=== PATIENT | female | born 1965 | race Caucasian/White ===

== ENCOUNTER 2016-10-28 01:46 | Emergency (ER) | payer OTHER ==
[~2016-10-28] VITALS: Ht 165.1 cm; Wt 147.4 kg
[~2016-10-28 01:46] MED LIST: BIAXIN500 MG PO; CIPROFLOXACIN500 MG PO; CLARITIN10 MG PO; DUONEB 3 MG/3 ML3 M1 NEB; FLEXERIL10 MG PO; HYDROCODONE BIT1 T11 PO; KEFLEX500 MG PO; LASIX40 MG PO; LEVOFLOXACIN750 M2 PO; LISINOPRIL10 M1 PO; MEDROL DOSEPAK4 MG PO; MOTRIN800 MG PO; PREDNISONE10 MG PO; PROVENTIL0.09 MG/AC IH; ROBITUSSIN AC 110 ML PO; SINGULAIR10 MG PO; SYNTHROID0.137 MG PO; VICO10300 PO; VICODIN 500 MG-1 TAB PO; VITAMIN D50000 I3 PO
[2016-10-28 02:09] VITALS: BP 173/94
[2016-10-28 02:23] LABS: BILIRUBIN NEGATIVE (NEGATIVE); BLOOD 3+ (NEGATIVE); CLARITY CLOUDY (CLEAR); COLOR YELLOW (YELLOW); GLUCOSE NEGATIVE (NEGATIVE); KETONE NEGATIVE (NEGATIVE); LEUKO ESTERASE 2+ (NEGATIVE); NITRITE NEGATIVE (NEGATIVE); PH 5.5 (5.0-9.0); PROTEIN NEGATIVE (NEGATIVE); SPECIFIC GRAVITY 1.015 (1.005-1.030); UROBILINOGEN 0.2 E.U./dl (0.2-1.0)
[2016-10-28 02:30] LABS: BACTERIA 1+; RBC TNTC rbc/hpf (0-2); URINE REFLEX COMMENT YES (NO); WBC 51-100 wbc/hpf (0-5)
[2016-10-28] MEDS ORDERED: DIFLUCAN150 MG PO (02:47)
[2016-10-28] MEDS ORDERED: PYRIDIUM200 M1 PO (02:47)
[2016-10-28] MEDS ORDERED: CEFUROXIME AXE250 MG PO (02:47)
== END 2016-10-28 03:26 | disposition home or self-care (01) ==
LOC: ED 01:46
PROVIDERS: Emergency Medicine Emergency Medical Services
DX: N39.0 Urinary tract infection, site not specified (principal); R30.0 Dysuria; Z79.899 Other long term (current) drug therapy

== ENCOUNTER → 2016-12-05 | Outpatient (CLI) | payer OTHER ==
[~2016-12-05] MED LIST changes: +CEFUROXIME AXE250 MG PO; +DIFLUCAN150 MG PO; +PYRIDIUM200 M1 PO
[2016-12-05 11:01] LABS: BASO # 0.1 10*3/uL (0.0-0.1); BASO % 0.7 % (0.0-1.0); EOS # 0.2 10*3/uL (0.0-0.4); EOS % 1.6 % (1.0-4.0); HEMATOCRIT 43.3 % (37.0-47.0); HEMOGLOBIN 13.7 g/dl (12.0-16.0); LYMPH # 1.9 10*3/uL (1.3-4.4); LYMPH % 17.8 % (27.0-41.0); MEAN CELL VOLUME 84.2 fl (81.0-99.0); MEAN CORPUSCULAR HGB 26.7 pg (27.0-31.0); MEAN CORPUSCULAR HGB CONC 31.6 g/dl (33.0-37.0); MEAN PLATELET VOLUME 9.8 fl (9.6-12.3); MONO # 0.7 10*3/uL (0.1-1.0); MONO % 6.2 % (3.0-9.0); NEUT # 7.7 10*3/uL (2.3-7.9); NEUT % 73.3 % (47.0-73.0); PLATELET COUNT AUTOMATED 330 10*3/uL (130-400); RED BLOOD COUNT 5.14 10*6/uL (4.10-5.10); RED CELL DISTRI WIDTH 15.3 % (0-14.5); WHITE BLOOD COUNT 10.5 10*3/uL (4.8-10.8)
[2016-12-05 11:26] LABS: ALBUMIN 3.6 gm/dl (3.1-4.5); BUN 17 mg/dl (7-24); CHLORIDE 100 mmol/L (98-107); CHOLESTEROL 188 mg/dL (<200); CREATININE 0.71 mg/dL (0.55-1.02); HDL CHOLESTEROL 51 mg/dl (40-60); LDL CHOLESTEROL 105 mg/dL (9-159); POTASSIUM 4.6 mmol/L (3.5-5.1); SGOT/AST 21 IU/L (3-35); SGPT/ALT 61 U/L (12-78); SODIUM 138 mmol/L (136-145); TOTAL PROTEIN 8.4 gm/dL (6.4-8.2); TRIGLYCERIDES 160 mg/dl (<150); VLDL CHOLESTEROL 32 mg/dL (6-40)
[2016-12-05 11:33] LABS: ALKALINE PHOSPHATASE 121 U/L (45-117)
== END | disposition home or self-care (01) ==
LOC: LAB 10:32
PROVIDERS: Internal Medicine
DX: M47.897 Other spondylosis, lumbosacral region (principal); M48.07 Spinal stenosis, lumbosacral region; M46.07 Spinal enthesopathy, lumbosacral region; M47.817 Spondylosis without myelopathy or radiculopathy, lumbosacral region; E04.1 Nontoxic single thyroid nodule; R94.6 Abnormal results of thyroid function studies; R94.5 Abnormal results of liver function studies; R73.09 Other abnormal glucose

== ENCOUNTER → 2016-12-19 | Outpatient (CLI) | payer OTHER | END | disposition home or self-care (01) | LOC: MAMMO 12-04 13:30 | DX: Z12.31 Encounter for screening mammogram for malignant neoplasm of breast (principal) ==

== ENCOUNTER 2017-05-04 04:35 | Emergency (ER) | payer SELFPAY ==
[~2017-05-04] VITALS: Ht 167.6 cm; Wt 145.1 kg
[2017-05-04 04:46] VITALS: BP 152/96
[2017-05-04] MEDS ORDERED: TOBREX OPHTH O3.5 GM T (05:49)
== END 2017-05-04 06:36 | disposition home or self-care (01) ==
LOC: ED 04:35
DX: S05.01XA Injury of conjunctiva and corneal abrasion without foreign body, right eye, initial encounter (principal); Z98.890 Other specified postprocedural states; Z87.01 Personal history of pneumonia (recurrent); Z79.899 Other long term (current) drug therapy; X58.XXXA Exposure to other specified factors, initial encounter; Y93.89 Activity, other specified; Y92.89 Other specified places as the place of occurrence of the external cause; Y99.9 Unspecified external cause status

== ENCOUNTER 2018-07-31 13:30 | Inpatient (IN) | payer MEDICAID ==
[~2018-07-31] VITALS: Ht 165 cm; Wt 164.7 kg
--- NOTE | ~2018-07-31 | EKG ---
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 : 1965 Requested By: CHARLOTTE TAN Order Number: [id number] Reading MD: Clive Farmer MD Measurements Intervals [place] Rate: 85 P: 56 TN: 176 QRS: -11 QRSD: 108 T: 55 QT: 380 QTc: 452 Interpretive Statements Sinus rhythm Probable left atrial enlargement Left ventricular hypertrophy Compared to ECG 07/22/2018 07:06:17 Left ventricular hypertrophy now present Incomplete right bundle-branch block no longer present Myocardial infarct finding no longer present ST (T wave) deviation no longer present Electronically Signed On 08-03-2018 7:55:12 PDT by Clive Farmer MD CM:EKGRPT:ELECTROCARDIOGRAM REPORT [id number] CHARLOTTE MARCUS DRAFT REPORT CHARLOTTE TAN MD
--- NOTE | ~2018-07-31 | EKG ---
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: : 1965 Requested By: CHARLOTTE TAN Order Number: [id number] Reading MD: Clive Farmer MD Measurements Intervals [place] Rate: 92 P: 2 LA: 178 QRS: -13 QRSD: 105 T: 59 QT: 357 QTc: 442 Interpretive Statements Sinus rhythm Probable anteroseptal infarct, old Compared to ECG 07/22/2018 07:06:17 Incomplete right bundle-branch block no longer present ST (T wave) deviation no longer present Myocardial infarct finding still present Electronically Signed On 08-03-2018 7:54:51 PDT by Clive Farmer MD CM:EKGRPT:ELECTROCARDIOGRAM REPORT [id number] CHARLOTTE TAN MD EPIPHANY DRAFT REPORT CHARLOTTE TAN MD
--- NOTE | ~2018-07-31 | PR ---
[place], [place] PROGRESS NOTE NAME: ARMANDO BAIN UNIT #: [id number] ROOM: 407 DOCTOR: ANDRESSA BE MD BIRTHDATE: [birth year] DOS: 08/09/2018 PULMONARY PROGRESS NOTE SUBJECTIVE: The patient noted comfortable at this time, resting in the bed without any distress this morning of assessment. She has not been reported any symptoms of fever or chills. The sore throat has been noted improving for the patient with current use of Diflucan, nystatin swish and swallow. OBJECTIVE: VITAL SIGNS: This morning, normal temperature, respiratory rate 18, heart rate 79, blood pressure 118/69. Pulse oxygen saturation recorded as 94% on room air. HEENT: Examination shows head was atraumatic. Eyes nonicterus. NECK: Supple. CARDIOVASCULAR: S1, S2 is audible. LUNGS: The patient was noted without any wheezing or crackles. ABDOMEN: Soft, obese, nontender. Bowel sounds present. EXTREMITIES: No new change. LABORATORY DATA: BMP this morning, BUN 27, creatinine normal. CBC, WBC count was 18.5. Hemoglobin and hematocrit, platelet count normal. IMPRESSION: 1. Acute exacerbation of bronchial asthma with resolving acute hypoxic respiratory failure. Gradual progressive acute pharyngitis, most likely related to the oral growth of Akua albicans. 2. Chronic obesity. 3. Obstructive sleep apnea disorder. PLAN OF MANAGEMENT: The patient could be discharged home. The patient with tapering prednisone to be completed, oral Diflucan, and nystatin swish and swallow. She could resume her CPAP upon improvement in the respiratory status. [place], [place] PROGRESS NOTE NAME: ARMANDO BAIN UNIT #: [id number] ROOM: 407 DOCTOR: ANDRESSA BE MD BIRTHDATE: [birth year] ANDRESSA FARRELL MD CM:PNTRANS [id number] ANDRESSA BELTRAN MD 08/24/18 1022 interface
--- NOTE | ~2018-07-31 | PROC NOTE ---
[place], [place] PROCEDURE NOTE NAME: ARMANDO BAIN UNIT #: [id number] ROOM: 407 DOCTOR: JAMI BELTRAN MD,ANDRESSA BIRTHDATE: [birth year] DOS: 08/03/2018 PROCEDURE: Bronchoscopy. PREOPERATIVE DIAGNOSES: Persistent coughing, wheezing, and left lower lobe pneumonia. POSTOPERATIVE DIAGNOSES: Removal of the mucopurulent secretion from endobronchial tree bilaterally with some redness of the proximal portion of the trachea was also noted. COMPLICATIONS: None. PROCEDURE DESCRIPTION: Informed consent obtained for the patient. The patient was brought to the OR and placed in supine position. Conscious sedation was administered by the Anesthesia Department. After the conscious sedation, airway was introduced into the mouth. Bronchoscope was advanced to the airway into laryngeal area. Epiglottis and vocal cords were seen. Vocal cords moving in symmetrical movements. Bronchoscope was advanced to the vocal cord through the tracheal lumen. The tracheal lumen was noted. The proximal portion of the trachea noted with some redness with mucosal irregularity. Secretions present in the tracheal lumen was suctioned out. Eleanor noted sharp. The right upper, right middle, left upper, lingular lobe bronchi all examined. Endobronchial secretion was removed from endobronchial tree, sent for culture. The patient was noted with transient hypoxia during the procedure that was corrected with withdrawal of the bronchoscope. Bronchial washing sent for appropriate culture. Procedure was well tolerated. The culture will be monitored. Postoperative finding will be discussed with the patient later on. The Solu-Medrol dose will be decreased to q.8 hours. The patient would be advised about reassessment of the upper airway with the repeat bronchoscopy in about a month to assess the resolution of the current abnormality noted in the tracheal lumen. No other changes otherwise will be as needed to be done in the treatment. ANDRESSA FARRELL MD CM:PROCNOTE:PROCEDURE NOTE [id number] ANDRESSA BELTRAN MD
--- NOTE | ~2018-07-31 | PR ---
[place], [place] PROGRESS NOTE NAME: ARMANDO BAIN UNIT #: [id number] ROOM: 407 DOCTOR: JAMI BELTRAN MD,ANDRESSA BIRTHDATE: [birth year] DOS: 08/06/2018 PULMONARY PROGRESS NOTE SUBJECTIVE: The patient was noted comfortable at this time without any acute distress, has not been noted symptoms of fever or chills. Shortness of breath and cough has been gradually improving in the last 24 hours with significant improvement noted. This morning, the patient is sitting on the chair at the time. PHYSICAL EXAMINATION: VITAL SIGNS: Normal temperature, respiratory rate 20, heart rate 84, blood pressure 144/77. The pulse oxygen saturation 3 liters nasal cannula 93% saturation. HEENT: Head was atraumatic. Eyes nonicterus. NECK: Supple. CARDIOVASCULAR: S1, S2 is audible. LUNGS: Noted improvement in the air entry was noted with reduction in the wheezing in the last 24 hours. ABDOMEN: Soft, obese, and nontender. Bowel sounds are present. EXTREMITIES: Chronic obesity. IMPRESSION: The patient with: 1. Resolving acute exacerbation of bronchial asthma, acute bronchitis, gradually progressively. 2. Human metapneumovirus with acute pneumonia involving the left lower lobe. PLAN OF MANAGEMENT: No changes in plan of care. Ambulation was encouraged with use of oxygen supplementation. Other additional treatment changes will be ordered based on progression of the illness. ANDRESSA FARRELL MD CM:PNTRANS [id number] ANDRESSA BELTRAN MD 08/06/18 1806 interface
--- NOTE | ~2018-07-31 | PR ---
[place], [place] PROGRESS NOTE NAME: ARMANDO BAIN UNIT #: [id number] ROOM: 407 DOCTOR: ANDRESSA BE MD BIRTHDATE: [birth year] DOS: 08/05/2018 PULMONARY PROGRESS NOTE SUBJECTIVE: The patient is still noted with coughing and wheezing, but the symptoms have been gradually subsiding, noted very slow resolution. Denies symptoms of chest pain, fever, chills, or hemoptysis. Denies symptoms of abdominal pain. OBJECTIVE: VITAL SIGNS: Normal temperature, respiratory rate 18, heart rate of 63, blood pressure 142/67. Pulse oxygen saturation recorded as 97% saturation on four-liter nasal cannula. HEENT: Examination shows head is atraumatic. Eyes nonicterus. NECK: Chronic obesity. CARDIOVASCULAR: S1 and S2 audible. LUNGS: Fmib-ch-raifiedh expiratory wheezing. No crackles. ABDOMEN: Soft, nontender. Bowel sounds present. EXTREMITIES: No new change. IMPRESSION: 1. The patient with slow but gradual resolution of acute exacerbation of bronchial asthma. 2. Human metapneumovirus with pneumonia involving the right lower lobe. 3. Morbid obesity. 4. Obstructive sleep apnea disorder. PLAN OF TREATMENT: Gradual reduction of the steroids will be started. Solu-Medrol dose will be decreased to 40 mg b.i.d. today. The antibiotics will be discontinued at this time because of lack of the culture supporting their use. Other additional treatment changes will be made with progression of the illness. Usual care, other therapy plan of management, care plan and treatments. [place], [place] PROGRESS NOTE NAME: ARMANDO BAIN UNIT #: [id number] ROOM: 407 DOCTOR: ANDRESSA BE MD BIRTHDATE: [birth year] ANDRESSA FARRELL MD CM:PNTRANS [id number] ANDRESSA BELTRAN MD 08/06/18 0010 interface
--- NOTE | ~2018-07-31 | EKG ---
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 Boss: SS RESP : 1965 Requested By: CHARLOTTE TAN Order Number: [id number] Reading MD: Clive Farmer MD Measurements Intervals [place] Rate: 89 P: 43 MT: 187 QRS: 12 QRSD: 104 T: 48 QT: 373 QTc: 454 Interpretive Statements Sinus rhythm Consider left atrial enlargement Baseline wander in lead(s) V1 Compared to ECG 07/22/2018 07:06:17 Incomplete right bundle-branch block no longer present Myocardial infarct finding no longer present ST (T wave) deviation no longer present Electronically Signed On 08-03-2018 7:55:49 PDT by Clive Farmer MD CM:EKGRPT:ELECTROCARDIOGRAM REPORT [id number] CHARLOTTE TAN MD EPIPHANY DRAFT REPORT CHARLOTTE TAN MD
--- NOTE | ~2018-07-31 | PR ---
[place], [place] PROGRESS NOTE NAME: ARMANDO BAIN UNIT #: [id number] ROOM: 407 DOCTOR: JAMI BELTRAN MDANDRESSA BIRTHDATE: [birth year] DOS: 08/08/2018 PULMONARY PROGRESS NOTE SUBJECTIVE: The patient was complaining of sore throat, which was noted significant in the last 24 hours. Shortness of breath and the wheezing has been gradually improving and subsiding. There were no symptoms of chest pain. Denies symptoms of hemoptysis. Denies symptoms of nausea or vomiting. Denies symptoms of abdominal pain, hematemesis, melena, or hematochezia. Denies symptoms of headache or diplopia. The patient has been using the oxygen supplementation as previously ordered as well. The remaining systems were reviewed and they were noted all negative. OBJECTIVE: VITAL SIGNS: Normal temperature, respiratory rate is 18, heart rate is 83, and blood pressure is 147/79-128/64. Pulse oxygen saturation is recorded as 98% saturation on 2 liters nasal cannula. HEENT: Examination shows head was atraumatic. Eyes nonicterus. NECK: Supple. CARDIOVASCULAR SYSTEM: S1, S2 is audible. LUNGS: The patient was noted without any crackles, rhonchi, or occasional wheezing. ABDOMEN: Soft, obese, nontender. MUSCULOSKELETAL: Without any acute deformity. CENTRAL NERVOUS SYSTEM: Cranial nerves 2-12 intact. LABORATORY DATA: There were no new labs done today. IMPRESSION: The patient has slow but gradual resolution noted with acute exacerbation of bronchial asthma, acute tracheobronchitis, oropharyngeal pain, and possibility of oropharyngeal candidiasis was suspected. PLAN OF MANAGEMENT: Started the patient on oral Nystatin swish and swallow 5 mL q.i.d., Diflucan 100 mg daily. Decrease the Solu-Medrol further to 40 mg of Solu-Medrol daily. Other additional treatment changes will be ordered with the progression of the illness. The patient was planned for discharge home today, but would not be done because of the patient's current acute symptoms. Possible consideration for tomorrow may be considered depending on the reduction of the current acute symptoms. [place], [place] PROGRESS NOTE NAME: ARMANDO BAIN UNIT #: [id number] ROOM: 407 DOCTOR: ANDRESSA BE MD BIRTHDATE: [birth year] ANDRESSA FARRELL MD CM:PNTRANS [id number] ANDRESSA BELTRAN MD 08/09/18 0527 interface
--- NOTE | ~2018-07-31 | EKG ---
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
--- NOTE | ~2018-07-31 | PR ---
[place], [place] PROGRESS NOTE NAME: ARMANDO BAIN UNIT #: [id number] ROOM: 407 DOCTOR: JAMI BELTRAN MD,ANDRESSA BIRTHDATE: [birth year] DOS: 08/07/2018 PULMONARY PROGRESS NOTE SUBJECTIVE: She has been showing gradual, but slow improvement in the respiratory status, progressive reduction in symptoms of shortness of breath, coughing, and wheezing. Denies any chest pain. Fatigue was noted. She did ambulate yesterday in the hallway using oxygen. OBJECTIVE: VITAL SIGNS: This morning at rest, normal temperature, respiratory rate 20/75, blood pressure 148/71, pulse oxygen saturation 2 liters nasal cannula 92% saturation. HEENT: Chronic obesity. NECK: Supple. Head was atraumatic. CARDIOVASCULAR: S1, S2 is audible. LUNGS: The patient with mild expiratory wheezing, no crackles. ABDOMEN: Soft, nontender. Bowel sounds present. EXTREMITIES: No acute change. Chronic obesity findings. IMPRESSION: Gradual, but progressive resolution of acute exacerbation of bronchial asthma and acute bronchitis as well as human metapneumovirus. PLAN OF MANAGEMENT: No changes in the plan at this time would be recommended. Continuation of current therapy, plan of management as ongoing. ANDRESSA FARRELL MD CM:PNTRANS [phone] ANDRESSA BELTRAN MD 08/08/18 0456 interface
--- NOTE | ~2018-07-31 | PR ---
[place], [place] PROGRESS NOTE NAME: ARMANDO BAIN UNIT #: [id number] ROOM: 407 DOCTOR: JAMI BELTRAN MD,ANDRESSA BIRTHDATE: [birth year] DOS: 08/04/2018 PULMONARY PROGRESS NOTE SUBJECTIVE: The patient has bronchoscopy done yesterday, still noted excessive severe coughing and wheezing at times. Denies symptoms of fever or chills. Shortness of breath was still reported. The cough has been noted partially decreased. Denies symptoms of hemoptysis. Noted low-grade fever, 100 degrees Fahrenheit as well. Continue antibiotics as well. Denies symptoms of headache or diplopia. Denies symptoms of nausea, vomiting, diarrhea, abdominal pain, hematemesis, melena, or hematochezia. Remaining systems were reviewed and they were noted all negative. OBJECTIVE: VITAL SIGNS: Normal temperature, respiratory rate is 20, heart rate is 77, and blood pressure is 134/74. Pulse oxygen saturation on 4 liters nasal cannula is 95% saturation. HEENT: On examination, head was atraumatic. Eyes nonicterus. NECK: Supple. CARDIOVASCULAR SYSTEM: S1, S2 is audible. LUNGS: Noted with expiratory wheezing without any crackles. ABDOMEN: Soft, nontender. Bowel sounds present. EXTREMITIES: Without any edema. MUSCULOSKELETAL: Chronic deformities. LABORATORY DATA: Respiratory virus panel, PCR was available noted positive for human metapneumovirus isolation. Culture of the bronchial washing preliminary noted normal reina. The Gram stain was noted with a few white blood cells, few epithelial cells, rare gram-positive cocci in pairs. Urine for Legionella antigen and Strep antigen both noted as negative. Spontaneous sputum culture noted normal reina. IMPRESSION: 1. The patient with acute ongoing severe exacerbation of bronchial asthma with human metapneumovirus with pneumonia. 2. Chronic obesity. 3. History of allergic rhinitis. PLAN OF MANAGEMENT: Discontinue antibiotic after the results of the culture was available completely. No antibiotic will be used. The dose of steroids will be gradually decreased based on improvement in the symptoms. At this time, the patient getting Solu-Medrol 40 mg b.i.d. Await the final culture results tomorrow prior to discontinue Levaquin and the Zosyn. Possible consideration of the Zithromax may be considered atypical coverage if necessary. However, at this time, the patient will be monitored, most likely without antibiotics. Other therapy, plan of management, care plan, and treatment with additional treatment changes will be ordered based on the progression of the illness. [place], [place] PROGRESS NOTE NAME: ARMANDO BAIN UNIT #: [id number] ROOM: [facility] DOCTOR: ANDRESSA BE MD BIRTHDATE: [birth year] ANDRESSA FARRELL MD CM:PNTRANS [phone] ANDRESSA BELTRAN MD 08/05/18 0259 interface
--- NOTE | ~2018-07-31 | PR ---
[place], [place] PROGRESS NOTE NAME: ARMANDO BAIN UNIT #: [id number] ROOM: 407 DOCTOR: JAMI BELTRAN MD,ANDRESSA BIRTHDATE: [birth year] DOS: 08/02/2018 PULMONARY PROGRESS NOTE SUBJECTIVE: She has been essentially noted the same complaining of fever and feeling hot. Coughing, patient has been noted small amounts of expectoration contained small amount of hemoptysis. Symptoms of headache or diplopia. Nausea, vomiting, diarrhea, abdominal pain, hematemesis, melena, or hematochezia. Denies any edema or pain of the lower extremity. Remaining systems were reviewed. They were noted all negative. PHYSICAL EXAMINATION: VITAL SIGNS: Normal temperature, respiratory rate 20, heart rate 83, blood pressure 151/77. Pulse ox saturation on 2 liters nasal cannula 94% saturation recorded. HEENT: Head was atraumatic. Eyes nonicterus. NECK: Supple. CARDIOVASCULAR: S1, S2 is audible. LUNGS: The patient noted decreased breath sounds. Crackles in the left lower lung. ABDOMEN: Soft, nontender. Bowel sounds present. EXTREMITIES: No acute change. MUSCULOSKELETAL: Without acute deformities. CENTRAL NERVOUS SYSTEM: Intact. SKIN: No visible skin lesions or rashes. LABORATORY DATA: The CT scan of the head that was done was essentially noted without any acute abnormalities. Sputum culture the patient noted normal reina from yesterday. Cultures, the Gram stain many white blood cells, moderate epithelial cells, many gram-positive cocci in pairs and clusters, many gram-positive bacilli and moderate budding yeast. The BMP this morning, normal BUN and creatinine. Glucose 150. CBC: WBC count 11,000, hemoglobin and hematocrit normal, platelet count normal. IMPRESSION: 1. The patient with acute pneumonia involving left lower lobe. 2. Acute exacerbation of bronchial asthma. 3. The patient with chronic obesity, history of obstructive sleep apnea disorder, previously diagnosed. PLAN OF MANAGEMENT: The patient has been assessed for bronchoscopy done tomorrow morning. In the meantime, continue current dose of corticosteroids, bronchodilators, and oxygen supplementation. Usual care. Reduction of Solu-Medrol, most likely after bronchoscopy would be considered. Other therapy, plan of management, additional treatment changes will be ordered based on progression of the illness. Chest x-ray will be done in the next couple of days to reassess the pneumonia for patient as well. N.p.o. past midnight for bronchoscopy. She was planned from midnight tonight for the bronchoscopy tomorrow morning. [place], [place] PROGRESS NOTE NAME: ARMANDO BAIN UNIT #: [id number] ROOM: [facility] DOCTOR: ANDRESSA BE MD BIRTHDATE: [birth year] ANDRESSA FARRELL MD CM:PNTRANS [phone] ANDRESSA BELTRAN MD 08/24/18 1020 interface
--- NOTE | ~2018-07-31 | PR ---
[place], [place] PROGRESS NOTE NAME: [facility]AIN [id number] UNIT #: [id number] ROOM: 407 DOCTOR: JAMI BELTRAN MD,ANDRESSA BIRTHDATE: [birth year] DOS: 08/03/2018 PULMONARY PROGRESS NOTE SUBJECTIVE: The patient was noted with similar symptoms of coughing, chest congestion and wheezing intermittently, remains in the Intensive Care Unit. Continued oxygen supplementation, bronchodilators and has not been noted any symptoms of fever or chills, hemoptysis. Denies any symptoms of hoarseness or otalgia. Denies any symptoms of headache or diplopia. Denies any symptoms of nausea, vomiting, diarrhea, abdominal pain, hematemesis, melena or hematochezia. Remaining systems were reviewed. They were noted all negative. The patient remains n.p.o. past midnight for bronchoscopy, which was planned to be done today. OBJECTIVE: VITAL SIGNS: Temperature noted 100.9 degrees Fahrenheit rectally to normal temperature orally. The respiratory rate 17-22, heart rate 91-83, blood pressure 119/62-130/63. Pulse oxygen saturation on 4 liters nasal cannula 95% saturation. HEENT: Chronic obesity. Head was atraumatic. Eyes: Nonicterus. NECK: Supple. CARDIOVASCULAR: S1, S2 audible. LUNGS: The patient with decreased breath sounds without any crackles. Expiratory wheezing. ABDOMEN: Soft, nontender. Bowel sounds present. EXTREMITIES: The patient without any acute edema. MUSCULOSKELETAL: Without any acute deformities. CENTRAL NERVOUS SYSTEM: The patient's cranial nerves 2-12 intact. LABORATORY DATA: CBC today: WBC count normal, hemoglobin and hematocrit normal and latelet count were normal. BMP this morning for the patient, glucose 168, BUN normal and creatinine was normal. IMPRESSION: 1. The patient who has been currently noted with acute pneumonia in the left lower lobe, ongoing acute exacerbation of bronchial asthma, chronic symptom for several months for this patient as well appear for bronchoscopy. 2. Chronic obesity. 3. Obstructive sleep apnea disorder. PLAN OF MANAGEMENT: Continue use of bronchodilators, oxygen supplementation, titrate supplementation of oxygen 92% or greater. Further changes in the medical management will be done after the bronchoscopy. Continue current antibiotics. Monitor respiratory status of the patient closely, monitor the labs, which was sent for assessment of acute pneumonia. [place], [place] PROGRESS NOTE NAME: ARMANDO BAIN UNIT #: [id number] ROOM: 407 DOCTOR: ANDRESSA BE MD BIRTHDATE: [birth year] ANDRESSA FARRELL MD CM:PNTRANS [id number] [id number] ANDRESSA BELTRAN MD 08/03/18 2356 interface
--- NOTE | ~2018-07-31 | CON ---
[place], [place] REPORT OF CONSULTATION NAME: ARMANDO BAIN UNIT #: [id number] ROOM: 407 DOCTOR: ANDRESSA BE MD BIRTHDATE: [birth year] DOS: 08/01/2018 PULMONARY CONSULTATION, EVALUATION, AND MANAGEMENT REASON FOR CONSULTATION: Assess the patient with acute pneumonia and abnormal respiratory complaints. HISTORY OF PRESENT ILLNESS: A 53-year-old white female patient who has a reported history of bronchial asthma longstanding for several years. 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 She has been noted sick for several months with progressive worsening noted in the last 2 months. She has developed symptoms of coughing episode, nonresolving at times. She has been also complaining symptoms of wheezing, shortness of breath. The patient was also noted with significant nocturnal awakening because of coughing, inability to sleep. The patient stated that she has been treated in this hospital few days ago and treated for influenza-like infection and then discharged home. She was discharged from this hospital and treated for 5 days, 07/25/2018. She returned back to the office for further care. During assessment, the patient had a chest x-ray done and subsequently CT scan of chest done, which were reported with evidence of acute pneumonia. REVIEW OF SYSTEMS: CONSTITUTIONAL: Fatigue and tiredness noted without any symptoms of fever or chills. EYES: Denies any burning, redness, or tenderness. EARS, NOSE, THROAT SYMPTOMS: Denies sore throat, hoarseness, otalgia, postnasal drainage, or epistaxis. CARDIOVASCULAR: No angina pain, edema, or pain of the lower extremities. GASTROINTESTINAL: Denies dysphagia, nausea, vomiting, diarrhea, abdominal pain, hematemesis, melena, or hematochezia. SKIN: Denies any abnormal lesions or rashes. MUSCULOSKELETAL: No acute joint pain, redness, or tenderness. CENTRAL NERVOUS SYSTEM: Denies dizziness, headache, diplopia, or syncopal episodes. Remaining systems were reviewed. They were noted all negative. PAST MEDICAL HISTORY: Reported as: 1. Longstanding bronchial asthma. 2. Morbid obesity. 3. Obstructive sleep apnea disorder, treated with the CPAP. 4. Intervertebral disk disease. 5. Allergic rhinitis. 6. Gastroesophageal reflux. PAST SURGICAL HISTORY: The patient reported surgery of: 1. Ankles. 2. C-sections. [place], [place] REPORT OF CONSULTATION NAME: ARMANDO BAIN UNIT #: [id number] ROOM: 407 DOCTOR: JAMI BELTRAN MD,ANDRESSA BIRTHDATE: [birth year] SOCIAL HISTORY: The patient is and lives at home. She has one child. Denies alcohol use or illicit drugs. She has smoked for about 5 years, from younger age from 14 years old until 19 years old, pack of cigarettes per day. FAMILY HISTORY: Father at the age of 65, committed suicide. Mother is living, 81-year-old with history of hypertension. HOME MEDICATIONS: Listed as use of Zyrtec, albuterol sulfate nebulizer, Ventolin HFA inhaler, Adderall, vitamin D, Vicodin, DuoNeb, levothyroxine, Singulair, recent prescription of Tamiflu and prednisone. CURRENT MEDICATIONS: Administered at this admission, Singulair, Solu-Medrol 60 mg q.8 hours, Lovenox 40 mg subcutaneous daily, Synthroid 175 mcg daily, Mucinex 1200 mg p.o. b.i.d., DuoNeb q.4h., IV vancomycin, Levaquin, and Zosyn. DRUG ALLERGIES: The patient noted no known drug allergies. PHYSICAL EXAMINATION: GENERAL: A 53-year-old female patient who has been currently noted to be awake and alert without any acute distress. VITAL SIGNS: This morning of assessment. Height of 5 feet 5 inches, weight of 363 pounds, BMI 60.6. Vital signs, normal temperature since admission, respiratory rate 18-20, heart rate 87-101, blood pressure 133/62-133/69. The pulse oxygen saturation recorded as 95% saturation on 4 liters nasal cannula. Room air on admission, 92 at rest. HEENT: Chronic obesity. Head was atraumatic. Eyes nonicterus. NECK: Supple and obese. CARDIOVASCULAR: S1, S2 is audible. LUNGS: Left lung was noted with decreased breath sounds with expiratory wheezing. There were no crackles heard. ABDOMEN: Soft, nontender, bowel sounds present. EXTREMITIES: The patient was noted without any acute edema. Chronic obesity findings. MUSCULOSKELETAL: Noted without any acute deformities. CENTRAL NERVOUS SYSTEM: Cranial nerves 2-12 intact. MUSCULOSKELETAL: Without any acute deformities. LABORATORY DATA: The D-dimer, which was done on admission is 0.80. CMP in the Emergency Room, normal BUN and creatinine. Albumin 2.8. The remaining LFTs and electrolytes normal. CBC on admission, noted with a normal WBC count, hemoglobin, and hematocrit. Blood culture past admission, no bacterial growth was seen. Influenza A and B, nasal washing antigen repeated in the margins were noted as negative. CMP that was completed this morning as glucose 202, BUN and creatinine was normal. Albumin 2.7. CBC of the patient this morning repeated still noted as normal. Chest x-ray 1 view, which were taken in the Emergency Room was reviewed, shows no visible acute pulmonary infiltration with one-view chest x-ray. CT scan of the chest, which was completed yesterday without contrast was reviewed. The patient shows patchy nodular infiltration present in the left lower lobe. Another infiltration noted in the right lower lobe medial subsegment as well. The infiltration noted, larger on the left than the right [place], [place] REPORT OF CONSULTATION NAME: ARMANDO BAIN UNIT #: [id number] ROOM: 407 DOCTOR: JAMI BELTRAN MD,[facility] BIRTHDATE: [birth year] side. The mediastinal structure review was noted suboptimal because of lack of IV contrast. IMPRESSION: The patient will be currently admitted to the hospital with ongoing symptoms, with acute exacerbation of bronchial asthma and currently considered with acute pneumonia. Surprisingly, the WBC count was noted as normal. The patient was also noted afebrile. Possibility of atelectasis could be also considered with infectious etiology of pulmonary infiltration remain in consideration. PLAN OF THERAPY: The patient is already getting Solu-Medrol that will be continued. Bronchoscopy will be done on Friday morning. She will be continued on Levaquin at this time and vancomycin, discontinued the IV Zosyn. Vancomycin would cover any post-viral pneumonia, coverage of Staph aureus or MRSA. Bronchodilator will be continued. Collect the sputum for Gram stain and culture. Order urine for Legionella antigen and strep antigen and repeat PCR for viral assessment from the nasal washings well. Other treatment therapy and plan of management change will be made based on the progression of the illness. Usual care. All other supportive plan of management, treatment therapy, and plan of care accordingly. Thanks for allowing me to participate in the care of this patient. ANDRESSA FARRELL MD CM:CONSTR:REPORT OF CONSULTATION [id number] 08/24/18 1018 interface
[~2018-07-31 13:30] MED LIST changes: +AMPHETAMINE/DEX30 MG PO; +HYDROCODONE-AC1 EACH PO; +Ipratropium Brom3 ML NEB; +PREDNISONE50 MG PO; +PROAIR HFA8.5 GM INH; +SYNTHROID,LEV175 MCG PO; -SYNTHROID0.137 MG PO; +TAMIFLU 75MG CA75 MG PO; +TOBREX OPHTH O3.5 GM T; +ZYRTEC10 MG PO
[2018-07-31 13:33] VITALS: BP 150/82
[2018-07-31 14:00] VITALS: BP 154/88
[2018-07-31 14:14] LABS: BASO % 0.3 % (0.0-1.0); EOS % 0.5 % (1.0-4.0); HEMATOCRIT 41.6 % (37.0-47.0); HEMOGLOBIN 13.3 g/dl (12.0-16.0); LYMPH # 0.9 10*3/uL (1.3-4.4); MEAN CELL VOLUME 85.4 fl (81.0-99.0); MEAN CORPUSCULAR HGB 27.3 pg (27.0-31.0); MEAN PLATELET VOLUME 10.3 fl (9.6-12.3); MONO # 0.6 10*3/uL (0.1-1.0); MONO % 7.9 % (3.0-9.0); NEUT % 77.1 % (47.0-73.0); PLATELET COUNT AUTOMATED 295 10*3/uL (130-400); RED BLOOD COUNT 4.87 10*6/uL (4.10-5.10); RED CELL DISTRI WIDTH 15.6 % (0-14.5); WHITE BLOOD COUNT 7.8 10*3/uL (4.8-10.8)
[2018-07-31 14:34] LABS: ALBUMIN 2.8 gm/dl (3.1-4.5); ALKALINE PHOSPHATASE 102 U/L (45-117); BUN 11 mg/dl (7-24); CHLORIDE 105 mmol/L (98-107); CREATININE 0.84 mg/dL (0.55-1.02); SGOT/AST 17 IU/L (3-35); SGPT/ALT 40 U/L (12-78); SODIUM 139 mmol/L (136-145); TOTAL PROTEIN 6.9 gm/dL (6.4-8.2)
[2018-07-31 14:35] LABS: TROPONIN I < 0.015 ng/ml (<0.045)
[2018-07-31 14:45] LABS: ACT PARTIAL THROMBO TIME 22.3 SECONDS (20.8-31.5)
[2018-07-31 15:30] VITALS: BP 161/75
[2018-07-31 16:13] LABS: BILIRUBIN NEGATIVE (NEGATIVE); BLOOD NEGATIVE (NEGATIVE); CLARITY CLEAR (CLEAR); COLOR YELLOW (YELLOW); GLUCOSE NEGATIVE (NEGATIVE); KETONE NEGATIVE (NEGATIVE); LEUKO ESTERASE NEGATIVE (NEGATIVE); NITRITE NEGATIVE (NEGATIVE); SPECIFIC GRAVITY 1.015 (1.005-1.030); UROBILINOGEN 0.2 E.U./dl (0.2-1.0)
[2018-07-31 16:19] LABS: BACTERIA TRACE; EPITHELIAL CELLS 0-2; WBC 0-2 wbc/hpf (0-5)
[2018-07-31 16:40] VITALS: BP 148/82
--- NOTE | 2018-07-31 18:00 | NUR ---
A 53, admitted to , under the services of ZAID Leon DO with a diagnosis of BILATERAL PNEUMONIA. Chief complaint is SOB, COUGH, FATIGUE. Patient arrived via bed from ER. Monitor applied. Initial assessment completed. Vital signs taken and recorded. ZAID LEON DO notified of admission to the unit. Orders received. See assessment for past medical history, medications and allergies. Patient and/or family oriented to unit. [facility] visitation policy reviewed. Clothing/patient valuable form completed. RAFY HARDING
[2018-07-31 18:10] VITALS: BP 136/86
[2018-07-31 20:00] VITALS: BP 126/66
--- NOTE | 2018-07-31 20:30 | NUR ---
PLEASANT/COOPERATIVE FOR SHIFT ASSESSEMENT. FAMILY MEMBER AT BEDSIDE. BREATHING TREATMENT ON AT THIS TIME. IVF MAINTAINED, IV ABX INFUSING. CALL LIGHT IN REACH
--- NOTE | 2018-07-31 22:36 | NUR ---
NOTIFIED DR AN OF PATIENT REQUESTING SOMETHING FOR A COUGH. STATED HE WOULD PUT SOMETHING IN
[2018-08-01] VITALS: BP 133/62
[2018-08-01 05:46] LABS: ALBUMIN 2.7 gm/dl (3.1-4.5); ALKALINE PHOSPHATASE 89 U/L (45-117); BUN 16 mg/dl (7-24); CHLORIDE 105 mmol/L (98-107); CREATININE 0.87 mg/dL (0.55-1.02); PHOSPHOROUS 2.5 mg/dL (2.5-4.9); POTASSIUM 4.1 mmol/L (3.5-5.1); SGOT/AST 14 IU/L (3-35); SGPT/ALT 39 U/L (12-78); SODIUM 139 mmol/L (136-145); TOTAL PROTEIN 6.5 gm/dL (6.4-8.2)
[2018-08-01 05:54] LABS: HEMATOCRIT 37.7 % (37.0-47.0); HEMOGLOBIN 11.6 g/dl (12.0-16.0); MEAN CELL VOLUME 86.7 fl (81.0-99.0); MEAN CORPUSCULAR HGB 26.7 pg (27.0-31.0); MEAN CORPUSCULAR HGB CONC 30.8 g/dl (33.0-37.0); MEAN PLATELET VOLUME 9.4 fl (9.6-12.3); PLATELET COUNT AUTOMATED 239 10*3/uL (130-400); RED BLOOD COUNT 4.35 10*6/uL (4.10-5.10); RED CELL DISTRI WIDTH 15.4 % (0-14.5); WHITE BLOOD COUNT 7.1 10*3/uL (4.8-10.8)
[2018-08-01 06:33] LABS: PLATELET SUFFICIENCY NORMAL (NORMAL); TOTAL CELLS COUNTED 100 #CELLS
[2018-08-01 08:00] VITALS: BP 121/55
--- NOTE | 2018-08-01 09:00 | NUR ---
TYLENOL 975MG GIVEN PRESCRIBED FOR A HEADACHE RATING A 4/10.
--- NOTE | 2018-08-01 10:00 | NUR ---
TYLENOL EFFECTIVE PER PATIENT.
[2018-08-01 12:00] VITALS: BP 133/69
[2018-08-01 16:00] VITALS: BP 132/69
[2018-08-01 20:00] VITALS: BP 149/72
--- NOTE | 2018-08-01 20:03 | NUR ---
DR JUDD AWARE OF PATIENT REQUESTING SOMETHING FOR A COUGH.
--- NOTE | 2018-08-01 21:29 | NUR ---
PATIENT REQUESTED TEMPERATURE TO BE TAKEN. STATES SHE FEELS FEVERED. ORAL TEMP 98.2
[2018-08-02] VITALS: BP 147/77
--- NOTE | 2018-08-02 01:10 | NUR ---
24 HR chart check completed.
--- NOTE | 2018-08-02 03:12 | NUR ---
MEDICATED WITH PRN ZOFRAN FOR C/O NAUSEA
--- NOTE | 2018-08-02 03:51 | NUR ---
PATIENT AMBULATING IN HALLWAY ON ROOM AIR. MEDICATION SEEMS EFFECTIVE
--- NOTE | 2018-08-02 04:17 | NUR ---
DR JUDD AWARE OF PATIENT REQUESTING TO SEE HIM.
--- NOTE | 2018-08-02 05:15 | NUR ---
DR JUDD TO FLOOR TO SEE PATIENT.
[2018-08-02 06:04] LABS: BASO % 0.2 % (0.0-1.0); HEMATOCRIT 40.8 % (37.0-47.0); HEMOGLOBIN 12.4 g/dl (12.0-16.0); LYMPH # 0.5 10*3/uL (1.3-4.4); LYMPH % 4.6 % (27.0-41.0); MEAN CELL VOLUME 86.6 fl (81.0-99.0); MEAN CORPUSCULAR HGB 26.3 pg (27.0-31.0); MEAN CORPUSCULAR HGB CONC 30.4 g/dl (33.0-37.0); MEAN PLATELET VOLUME 9.4 fl (9.6-12.3); MONO # 0.5 10*3/uL (0.1-1.0); MONO % 4.6 % (3.0-9.0); NEUT # 9.7 10*3/uL (2.3-7.9); NEUT % 87.9 % (47.0-73.0); PLATELET COUNT AUTOMATED 292 10*3/uL (130-400); RED BLOOD COUNT 4.71 10*6/uL (4.10-5.10); RED CELL DISTRI WIDTH 15.5 % (0-14.5)
[2018-08-02 06:12] LABS: BUN 13 mg/dl (7-24); CHLORIDE 103 mmol/L (98-107); CREATININE 0.79 mg/dL (0.55-1.02); POTASSIUM 4.2 mmol/L (3.5-5.1); SODIUM 138 mmol/L (136-145)
--- NOTE | 2018-08-02 07:13 | NUR ---
PT. REFUSED AEROSOL TREATMENT AT THIS TIME. C/O NAUSEA
--- NOTE | 2018-08-02 07:35 | NUR ---
ATTEMPT TO CALL DOCTOR TO INFORM ZOFRAN INEFFECTIVE AND PATIENT HAS NAUSEA.
--- NOTE | 2018-08-02 07:47 | NUR ---
PRESENT ON FLOOR. INFORMED THAT PATIENT IS HAVING A LOT OF NAUSEA WITH ZOFRAN NOT DUE AND WAS INEFFECTIVE PRIOR. STATES ORDER FOR ZOFRAN WILL BE ORDERED
[2018-08-02 08:00] VITALS: BP 138/68
--- NOTE | 2018-08-02 08:00 | NUR ---
INFORMED THAT PATIENT IS ALSO HAVING SPLITTING HEADACHE AND NO PAIN MEDICATION ORDERED. STATES HE WILL PLACE ORDER
--- NOTE | 2018-08-02 08:05 | NUR ---
PATIENT IS MISERABLE, IS PRESENT ND ON FLOOR TO SEE PATIENT.
--- NOTE | 2018-08-02 08:07 | NUR ---
PATIENT MEDICATED WITH ZOFRAN WILL MONITOR EFFECTIVENESS.
--- NOTE | 2018-08-02 08:10 | NUR ---
PATIENT STATES SHE DOES NOT WANT PAIN MEDICATION RIGHT NOW SATTED THAT SHE BELIEVE SHE WILL THROW UP IF SHE TAKES IT. PATIENT WANTS TO WAIT UNTIL ZOFRAN IS EFFECTIVE TO TRY. MADE AWARE STATES THAT CT OF HEAD WILL BE ORDERED.
--- NOTE | 2018-08-02 08:15 | NUR ---
PATIENT STATES "HELP ME IM SO SICK". ADDRESSED PATIENT NEEDS, REFILLED ICE AND COLD COMPRESSION APPLIED TO FOREHEAD. WILL MONITOR
--- NOTE | 2018-08-02 09:07 | NUR ---
PATIENT STATED THAT ZOFRAN WAS WORKING BUT STIL SLIGHLY NAUSEATED. HEADACHE IS BETTER, STILL REFUSING PAIN MEDICATION. PATIENT NOTABLY BETTER.
--- NOTE | 2018-08-02 09:30 | NUR ---
DR.TORM KNIGHTWARE THAT PATIENT IS PRODUCING THICK BROWN TING SPUTUM THAT FAMILY IS CONCERN FOR BLOOD, NO BRIGHT RED. PER PATIENT IT HAS BEEN LIKE THIS. STATED OK, IF GOOD AMOUNT OF BLOOD TING SPUTUM PRODUCTION CALL JAMI.
--- NOTE | 2018-08-02 10:55 | NUR ---
PATIENT EDUCATION PROVIDED ON ATB ADMINSTRATION. PATIENT STATES THAT SHE UNDERSTAND THAT SHE NEEDS THEM AND WILL CONTINUE TO TAKE.
--- NOTE | 2018-08-02 10:58 | NUR ---
INFORMED THAT PATIENT IS NOW HAVING DIARRHEA AND HAD INCONT IN BED. INQUIRED THAT IF VANC IS CAUSING SYMPTOMS ARE WE STILL CONTINUING WITH ADMINSTRATION. STATES YES AND STATES I DON'T BELIEVE THAT IT IS TRUE RED MAN SYNDROME.
[2018-08-02 12:00] VITALS: BP 151/77
--- NOTE | 2018-08-02 12:50 | NUR ---
INFORMED THAT PATIENT IS EXTREMELY NAUSEATED AGAIN AND ZOFRAN NOT DUE AT THIS TIME. PATIENT IS HOT TO TOUCH, FACE/CHEST IS RED. STATED TO DISCONTINUE IV VANCO AND TO PLACE ORDERS FOR IV PHENERGAN AND IV BENADRYL. ORDERSIN PLACE PER WISHES.
--- NOTE | 2018-08-02 12:55 | NUR ---
VACOMYCIN PLACED AN DRUG ALLERGY
--- NOTE | 2018-08-02 13:12 | NUR ---
IV PHENERGAN GIVEN AT THIS TIME PUSHED SLOWLY OVER REQUIRED TIME. WILL MONITOR
--- NOTE | 2018-08-02 13:12 | NUR ---
IV BENADRLY GIVEN AT THIS TIME D/T ALLERGIC REACTION TO VANCOMYCIN. WILL MONITOR. RESP ARE ERND AT THIS TIME. WILL MONITOR
--- NOTE | 2018-08-02 13:32 | NUR ---
INFORMED THAT PATIENT IS HAVING A NOSE BLEED WITH GOOD AMOUNT PRODUCED, STOPPED NOW. PATIENT IS DIZZY D/T MEDICATIONS ADMINISTRATION BUT RESTLESSNESS/HIGH ANXIETY, SHAKEY HERSELF BACK AND FORTH. IN FORMED THAT RESP ARE REGULAR AND NO C/O SOB. DR. ADAMS STATES THAT HE WILL CALL THEN INFORM THIS NURSE OF WHAT HE SAYS.
--- NOTE | 2018-08-02 13:45 | NUR ---
PATIENT MEDICATED WITH IV ATIVAN, PUSHED SLOWLY, D/T ANXIETY AND RESTLESSNESS. WILL MONITOR
--- NOTE | 2018-08-02 13:55 | NUR ---
IN TO SEE PATIENT PER WISHES. INFORMED OF PATIENTS CURRENT CONDITIONS AND RECENT TREATMENT. STATES SHE WILL GO SEE PATIENT IN ROOM.
--- NOTE | 2018-08-02 14:12 | NUR ---
PATIENT STATES THAT PHENERGAN IS SLIGHTLY EFFECTIVE.
--- NOTE | 2018-08-02 14:12 | NUR ---
BENADRYL IS SLIGHLY EFFECTICE PATIENT STILL COMPLAINS OF SKIN "BEING ON FIRE".
[2018-08-02 14:30] VITALS: BP 165/81
--- NOTE | 2018-08-02 14:30 | NUR ---
PATIENT TRANSFERRED BACK TO [facility] ROOM 6. REPORT GIVEN TO
--- NOTE | 2018-08-02 14:30 | NUR ---
RECEIVED FROM WITH POSSIBLE REJI SYNDROME FROM VANCOMYCIN REACTION. PATIENT IS RESTLESS AND MOVING ABOUT FREQ. TEMP IS 102 TYMPANIC SO VERIFIED WITH RECTAL TEMP OF 102. DOCTOR CALLED AND BLOOD CULTURES ORDERED. HEP LOCK INTACT. EX WHEEZE. PT INCONTINENT OF URINE. FULL BED CHANGE DONE. AAOX3, FOLLOWS COMMANDS.
--- NOTE | 2018-08-02 15:02 | NUR ---
Shift chart check completed.
--- NOTE | 2018-08-02 15:22 | NUR ---
TYLENOL GIVEN FOR ELEVATED TEMP - PATIENT COUGHING UP THICK YELLOW/GREEN/WHITE SPUTUM. SPECIMEN CUP GIVEN TO SPIT IN SO PATIENT WOULD QUIT SPITING IT ON THE FLOOR
--- NOTE | 2018-08-02 16:30 | NUR ---
SLEEPING, RESP EASY AND NONLABORED
--- NOTE | 2018-08-02 17:11 | NUR ---
PATIENT STATED THAT SHE DID NOT WANT WOKE UP & WOULDN'T ALLOW THEM TO STICK HER AGAIN AND WHEN LAB CAME BACK TO ATTEMPT TO GET BLOOD CULTURE THAT THEY ALREADY TRIED 2 TIMES BUT WERE UNSUCCESSFUL THE RESPONSE WAS NO MORE. MARKED PATIENT REFUSED & DISCUSSSED WITH NURSE.
--- NOTE | 2018-08-02 18:37 | NUR ---
INCONTINENT OF URINE AFTER COUGHING UP THISK YELLOW SPUTUM
[2018-08-02 20:00] VITALS: BP 119/62
--- NOTE | 2018-08-02 20:40 | NUR ---
PATIENT GIVEN ZOFRAN FOR C/O NAUSEA. WILL CONTINUE TO MONITOR AND REASSESS.
--- NOTE | 2018-08-02 21:40 | NUR ---
TYLENOL GIVEN FOR ELEVATED TEMP. PT REPORTS ZOFRAN WAS EFFECTIVE. PATIENT RESTING COMFORTABLY IN BED AT THIS TIME.
[2018-08-03] VITALS (9 sets, daily range): BP systolic 113–163; BP diastolic 56–79
--- NOTE | 2018-08-03 06:01 | NUR ---
PATIENT COMPLAINING OF IV SITE PAIN IN LEFT HAND. IV DISCONTINUED. ACCUCATH STARTED IN RA. PATIENT TOLERATED WELL.
[2018-08-03 06:45] LABS: BASO % 0.1 % (0.0-1.0); HEMOGLOBIN 12.5 g/dl (12.0-16.0); LYMPH # 0.6 10*3/uL (1.3-4.4); LYMPH % 5.7 % (27.0-41.0); MEAN CELL VOLUME 86.6 fl (81.0-99.0); MEAN CORPUSCULAR HGB 27.1 pg (27.0-31.0); MEAN CORPUSCULAR HGB CONC 31.3 g/dl (33.0-37.0); MEAN PLATELET VOLUME 9.3 fl (9.6-12.3); MONO # 0.5 10*3/uL (0.1-1.0); MONO % 5.1 % (3.0-9.0); NEUT # 8.4 10*3/uL (2.3-7.9); NEUT % 86.9 % (47.0-73.0); PLATELET COUNT AUTOMATED 273 10*3/uL (130-400); RED BLOOD COUNT 4.62 10*6/uL (4.10-5.10); RED CELL DISTRI WIDTH 15.9 % (0-14.5); WHITE BLOOD COUNT 9.6 10*3/uL (4.8-10.8)
[2018-08-03 07:09] LABS: BUN 15 mg/dl (7-24); CHLORIDE 100 mmol/L (98-107); CREATININE 0.89 mg/dL (0.55-1.02); POTASSIUM 4.3 mmol/L (3.5-5.1); SODIUM 137 mmol/L (136-145)
--- NOTE | 2018-08-03 10:32 | NUR ---
TRANSFERRED TO 407, REPORT GIVEN, FAMILY AWARE OF ROOM CHANGE TOLERATED CL LIQUIDS WELL
--- NOTE | 2018-08-03 16:14 | NUR ---
Attendant Arcade in to talk to patient. Patient states lives at HOME with HER 10 MONTH OLD GRANDSON. There are FEW steps in the home. Physician: JOSE Pharmacy: [facility] Home health services: NONE Patient's level of ADLs: INDEPENDENT Patient has working utilities: YES DME: NONE Follow-up physician's appointment after d/c: WILL BE MADE BY HOSPITALIST NURSE DIRECTOR ON DISCHARGE Does patient want to access PORTAL?: NO Discharge plan PT STATES SHE LIVES AT HOME AND TAKE CARE OF HER 10 MONTH OLD GRANDSON. DENIES HOME NEEDS ON DISCHARGE. PT ASK ME TO FAX A LETTER TO HER PLACE OF EMPLOYEMENT TELLING THEM SHE WAS A PT HERE AT [facility], WHICH I DID. NO OTHER NEEDS AT THIS TIME. WILL CONTINUE TO FOLLOW. WILL HAVE A RIDE HOME ON DISCHARGE.. HALIE STEPHEN
[2018-08-04] VITALS: BP 134/66
[2018-08-04 00:07] LABS: ADENOVIRUS Negative (Negative); INFLUENZA A Negative (Negative); INFLUENZA B Negative (Negative); METAPNEUMOVIRUS Positive (Negative); PARAINFLUENZA 1 Negative (Negative); PARAINFLUENZA 2 Negative (Negative); PARAINFLUENZA 3 Negative (Negative); RHINOVIRUS Negative (Negative); RSV A Negative (Negative); RSV B Negative (Negative)
[2018-08-04 08:00] VITALS: BP 129/69
--- NOTE | 2018-08-04 08:52 | NUR ---
DR. FARRELL IN TO SEE PATIENT. MADE AWARE PATIENT'S RVP CAME BACK POSITIVE FOR METAPNEUMOVIRUS. DR. FARRELL STATES THAT IT DOES NOT NEED TO BE ISOLATED.
--- NOTE | 2018-08-04 11:49 | NUR ---
ATTEMPTED 3L/M O2 VIA NC. SAT TO 91%. O2 BACK TO 4L/M.
[2018-08-04 12:00] VITALS: BP 134/74
--- NOTE | 2018-08-04 12:12 | NUR ---
PT CONTINUES TO DENY HOME NEEDS ON DISCHARGE. WILL CONTINUE TO FOLLOW.
[2018-08-04 16:00] VITALS: BP 125/63
[2018-08-04 16:05] LABS: ACID FAST SPEC PROCESSING Concentration (.)
[2018-08-04 20:00] VITALS: BP 122/62
--- NOTE | 2018-08-04 20:32 | NUR ---
ATTEMPTED TO ASSESS PATIENT. PATIENT APPEARS TO BE YELLING ON PHONE AT THIS TIME. WILL ATTEMPT AGAIN LATER.
[2018-08-05] VITALS: BP 128/61
[2018-08-05 08:00] VITALS: BP 142/67
--- NOTE | 2018-08-05 11:20 | NUR ---
Occupational THerapy evaluation offered this am. Patient in bed with son and grandson present. Patient reports that the doctor thinks she may need to go to a SNF and she has no insurance, so she is not sure how to pay for this or how to pay for oxygen, medications, etc. Patient requests no OT until after she speaks with the bottle caser. OTR informed patient's bottle caser: Sujatha of the above. Lesia Chi OTR/freedom
[2018-08-05 12:00] VITALS: BP 104/90
--- NOTE | 2018-08-05 14:49 | NUR ---
Occupational Therapy evaluation completed on 4 with full eval to follow. Precautions include fall risk, obesity, new o2 needs@ 3 LPM, SOB w/ minimal exertion, moderate complexity level 16860 via chart review, testing and evaluation. Recommend OT per pOC and SNF if financially able. If no finances are available , then home health OT,PT,SN, WELDER SETTER RESISTANCE MACHINE and may need O2. Thank you for this referral. Lesia Chi OTR/L
[2018-08-05 16:00] VITALS: BP 122/65
[2018-08-05 20:00] VITALS: BP 128/83
[2018-08-06] VITALS: BP 146/70
--- NOTE | 2018-08-06 03:10 | NUR ---
24 HR chart check completed.
[2018-08-06 08:00] VITALS: BP 144/77
--- NOTE | 2018-08-06 08:46 | NUR ---
PHYSICAL THERAPY House keeping mopping floor at this time. Thank you for this referral. Marina Arriaza,PT
[2018-08-06 12:00] VITALS: BP 100/86
--- NOTE | 2018-08-06 12:10 | NUR ---
PHYSICAL THERAPY Patient evaluated on 4, full evaluation to follow. Continue with PT as per plan of care with fall, 02 and acute debility precautions. Will require SNF. PAtient is self pyy and may need to return to home instead. PAtient is moderate complexity via chart review, tests and evaluation: 32928. MAy require ortho consult for c/o pain left knee after twisting it in parking lot at work earlier this week. Thank you for this referral. Marina Arriaza,PT
--- NOTE | 2018-08-06 14:24 | NUR ---
OT NOTE Pt was seen this P.M. 1:1 for 15 minute OT session. Upon arrival pt was sitting uprihgt on the EOB. Pt identified by name and and had no complaints at this time. Pt presented to therapy with continous 3L-O2 via NC which she remained on throughout entire session. At rest pt's SpO2 was 93%. Sit to stand completed from bed level with CGA for safety followed by functional mobility into the bathroom with CGA. Pt had poor safety with the O2 line increasing risk of falls. Educated pt on safety and management of O2 and pt had good carry over requiring only one verbal prompt to correct. Pt transferred on/off standard commode with CGA and use of grab bar for UE support. Pt then stood sink side while washing her hands with CGA. She then returned to the EOB. Pt's SpO2 was at 89%. Educated pt on deep abdominal breathing and after aprox 1 minute pt's SpO2 raised to 91%. Educated pt on energy conservation techniques with ADL's for increased I. Pt was left sitting upright on the EOB with family and friend at bedside. Continue with rec D/C plan to SNF if able. KENNEY Monroe/Chuckie
--- NOTE | 2018-08-06 14:41 | NUR ---
PHYSICAL THERAPY checked on pt this afternoon, pt stated she just got done working with the [employer] and was too tired to perform PT services at this time, will check back at a later date JULIA FRAGOSO LIQUOR MAKER
--- NOTE | 2018-08-06 15:58 | NUR ---
OCCUPATIONAL THERAPY CO-SIGN I approve of the Occupational Therapy notes written above. REENA PAUL OTR/Chuckie
[2018-08-06 16:00] VITALS: BP 132/77
[2018-08-06 20:00] VITALS: BP 133/77
[2018-08-07] VITALS: BP 138/74
--- NOTE | 2018-08-07 02:17 | NUR ---
CEPACOL LOZENGE GIVEN PER ORDER FOR SORE THROAT.
--- NOTE | 2018-08-07 03:00 | NUR ---
24 HR chart check completed.
[2018-08-07 06:02] LABS: BASO % 0.1 % (0.0-1.0); HEMATOCRIT 40.6 % (37.0-47.0); HEMOGLOBIN 12.8 g/dl (12.0-16.0); LYMPH # 1.1 10*3/uL (1.3-4.4); LYMPH % 7.4 % (27.0-41.0); MEAN CELL VOLUME 85.7 fl (81.0-99.0); MEAN CORPUSCULAR HGB CONC 31.5 g/dl (33.0-37.0); MEAN PLATELET VOLUME 9.6 fl (9.6-12.3); MONO # 0.5 10*3/uL (0.1-1.0); MONO % 3.7 % (3.0-9.0); NEUT # 12.7 10*3/uL (2.3-7.9); NEUT % 87.7 % (47.0-73.0); PLATELET COUNT AUTOMATED 302 10*3/uL (130-400); RED BLOOD COUNT 4.74 10*6/uL (4.10-5.10); RED CELL DISTRI WIDTH 15.5 % (0-14.5); WHITE BLOOD COUNT 14.5 10*3/uL (4.8-10.8)
[2018-08-07 06:28] LABS: BUN 23 mg/dl (7-24); CHLORIDE 101 mmol/L (98-107); CREATININE 0.79 mg/dL (0.55-1.02); POTASSIUM 4.4 mmol/L (3.5-5.1); SODIUM 135 mmol/L (136-145)
[2018-08-07 08:00] VITALS: BP 148/71
--- NOTE | 2018-08-07 10:13 | NUR ---
PHYSICAL THERAPY informed consent given, pt identified by name and . pt presented supine in bed spO2 92% 2L. supine to sit SBA. STS and stand to sit x2 trials CGA. Static standing balance 23 seconds d/t fatigue spO2 91% 2L. walked 20ft with 180* turn CGA no LOB presented, pt sat in chair after walk and began to cough spO2 lowered to 88% 2L educated on breathing techniques, spO2 reached 92% 2L after demonstrating good breathing techniques. Ended treatment pt sitting in chair spO2 92% 2L, call light and belongings in reach. 1:1 treatment with OPERATIONS MGR 10min.
[2018-08-07 12:00] VITALS: BP 145/62
--- NOTE | 2018-08-07 13:25 | NUR ---
PT CAN BE DISCHARGED TO HOME WHEN MEDICALLY STABLE. WILL CONTINUE TO FOLLOW.
--- NOTE | 2018-08-07 13:27 | NUR ---
OT NOTE PATIENT IDENTIFIED BY NAME AND DATE OF . PATIENT SEEN 1:1 OT THIS DATE AND REPORTS THAT SHE WAS FATIGUED AND HAD JUST GOT BACK INTO BED. PATIENT COMPLETED ACTIVITY TO TOLERANCE THIS DATE. COMPLETED BUE AROM STRENGTHENING 2 EXERCISES X 10 REPS WITH EDUCATION PROPER PACING AND DIAPHRAMATIC BREATHING THIS DATE. PATIENT DEMONSTRATED P+ ACTIVITY TOLERANCE THIS DATE WITH MAX REST BREAKS THIS DATE. PATIENT VERBALIZED THAT WAS ALL SHE COULD DO TODAY. CONTINUE TOWARDS PLAN OF CARE. DAYO MOULTON/Chuckie
[2018-08-07 16:00] VITALS: BP 146/80
[2018-08-07 20:00] VITALS: BP 136/72
--- NOTE | 2018-08-07 21:45 | NUR ---
PATIENT REQUESTED AND WAS MEDICATED WITH RESTORIL AND CEPACHOL FOR C/O SORE THROAT AND INABILITY TO SLEEP. SEE EMAR. REINFORCED USE OF CALL LIGHT.
[2018-08-08] VITALS: BP 138/68
--- NOTE | 2018-08-08 01:30 | NUR ---
PATIENT RESTING QUIETLY. NO FURTHER C/O VOICED.
--- NOTE | 2018-08-08 01:37 | NUR ---
24 HR chart check completed.
[2018-08-08 08:00] VITALS: BP 136/76
--- NOTE | 2018-08-08 11:11 | NUR ---
TYLENOL 650 MG GIVEN FOR C/O SORE THROAT AND H/A. CEPACHOL GIVEN PER PT REQUEST.
--- NOTE | 2018-08-08 11:41 | NUR ---
PT C/O HEARTBURN,NOTIFIED DR AN.AWAITING ORDER.
[2018-08-08 12:00] VITALS: BP 128/64
--- NOTE | 2018-08-08 12:03 | NUR ---
PT UP AND SHOWERED WITH ASSISTANCE.TOLERATED WELL. VOICES NO NEEDS AT THIS TIME.RESPS EASY ON 2LNC.CALL LIGHT IN REACH.
--- NOTE | 2018-08-08 14:48 | NUR ---
RESTING IN BED WITH EYES CLOSED. VOICES NO NEEDS AT THIS TIME. RESPSP EASY ON 2LNC. CALL LIGHT IN REACH.
--- NOTE | 2018-08-08 15:20 | NUR ---
SPOKE TO DR FARRELL REGARDING PT C/O THROAT PAIN, ORDERS RECIEVED.
[2018-08-08 16:00] VITALS: BP 147/79
--- NOTE | 2018-08-08 16:30 | NUR ---
CA CARBONATE GIVEN FOR C/O HEARTBURN/INDIGESTION.
--- NOTE | 2018-08-08 17:01 | NUR ---
TYLENOL 650 MG GIVEN FOR C/O THROAT PAIN AND H/A,09/21.
--- NOTE | 2018-08-08 19:15 | NUR ---
REPORT OBTAINED FROM STEFANY. PATIENT IS RESTING IN BED, EYES CLOSED. NO DISTRESS NOTED, RESP ARE ERND ON ROOM 2LPM. BED IS LOCKED IN LOWEST POSITION. CALL LIGHT LEFT WITHIN REACH.
--- NOTE | 2018-08-08 19:55 | NUR ---
PATIENT GIVEN TUMS FOR C/O INDIGESTION. WILL MONITOR
[2018-08-08 20:00] VITALS: BP 158/77
--- NOTE | 2018-08-08 20:03 | NUR ---
CALLED AND INFORMED THAT PATIENT IS HAVING INDIGESTION AND PATIENT IS REQUESTED FOR 2 VU INSTEAD OF 1 TAB. DOCTOR STATES OK TO INCREASE TO 2 TAB.
[2018-08-09] VITALS: BP 126/75
--- NOTE | 2018-08-09 03:35 | NUR ---
24 HR chart check completed.
--- NOTE | 2018-08-09 05:35 | NUR ---
PATIENT GIVE CEPACOL FOR C/O SORE THROAT. WILL MONITOR
[2018-08-09 07:05] LABS: BASO % 0.1 % (0.0-1.0); EOS # 0.1 10*3/uL (0.0-0.4); EOS % 0.3 % (1.0-4.0); HEMATOCRIT 40.5 % (37.0-47.0); HEMOGLOBIN 12.5 g/dl (12.0-16.0); LYMPH # 1.8 10*3/uL (1.3-4.4); LYMPH % 9.9 % (27.0-41.0); MEAN CELL VOLUME 86.2 fl (81.0-99.0); MEAN CORPUSCULAR HGB 26.6 pg (27.0-31.0); MEAN CORPUSCULAR HGB CONC 30.9 g/dl (33.0-37.0); MEAN PLATELET VOLUME 9.4 fl (9.6-12.3); MONO # 0.7 10*3/uL (0.1-1.0); MONO % 3.7 % (3.0-9.0); NEUT # 15.7 10*3/uL (2.3-7.9); NEUT % 85.1 % (47.0-73.0); PLATELET COUNT AUTOMATED 272 10*3/uL (130-400); RED CELL DISTRI WIDTH 15.6 % (0-14.5); WHITE BLOOD COUNT 18.5 10*3/uL (4.8-10.8)
[2018-08-09 07:17] LABS: BUN 27 mg/dl (7-24); CHLORIDE 101 mmol/L (98-107); CREATININE 0.73 mg/dL (0.55-1.02); POTASSIUM 3.9 mmol/L (3.5-5.1); SODIUM 138 mmol/L (136-145)
[2018-08-09 08:00] VITALS: BP 118/69
[2018-08-09 12:00] VITALS: BP 138/73
--- NOTE | 2018-08-09 12:08 | NUR ---
DR FARRELL ROUNDED AND SEEN PT.
[2018-08-09] MEDS ORDERED: Nystatin 100,000 UNI PO (12:18)
[2018-08-09] MEDS ORDERED: FLUCONAZOLE100 MG PO (12:18)
[2018-08-09] MEDS ORDERED: PREDNISONE10 MG PO (12:18)
--- NOTE | 2018-08-09 13:30 | NUR ---
Discharge instructions reviewed with patient/family. Patient receptive and verbalizes understanding. Follow-up care arranged. Written instructions given to patient/family. NENO FOFANA
--- NOTE | 2018-08-10 17:21 | NUR ---
OCCUPATIONAL THERAPY CO-SIGN I approve of the Occupational Therapy notes written above. REENA PAUL OTR/Chuckie
--- NOTE | 2018-08-11 07:53 | NUR ---
PHYSICAL THERAPY CO-SIGN I approve of the Phyical Therapy notes written above. SUE ORTEGA PT
[2018-09-16 09:07] LABS: ACID FAST CULTURE Negative (.)
== END 2018-08-09 13:30 | disposition home or self-care (01) | DRG 871 ==
LOC: ED 13:30 → EDHOLD 17:25 → 4E 17:25 → ICCU 08-02 14:38 → 4E 08-03 10:37
PROVIDERS: Emergency Medicine; Internal Medicine; Internal Medicine Critical Care Medicine; Physician Assistant; Student in an Organized Health Care Education/Training Program; ADMIT Internal Medicine
DX: A41.9 Sepsis, unspecified organism (principal); J96.01 Acute respiratory failure with hypoxia; J18.1 Lobar pneumonia, unspecified organism; J12.3 Human metapneumovirus pneumonia; E44.0 Moderate protein-calorie malnutrition; J45.901 Unspecified asthma with (acute) exacerbation; Z68.44 Body mass index [BMI] 60.0-69.9, adult; G89.29 Other chronic pain; M54.9 Dorsalgia, unspecified; R65.20 Severe sepsis without septic shock; G47.33 Obstructive sleep apnea (adult) (pediatric); J02.9 Acute pharyngitis, unspecified; K21.9 Gastro-esophageal reflux disease without esophagitis; E03.9 Hypothyroidism, unspecified; E55.9 Vitamin D deficiency, unspecified; E66.01 Morbid (severe) obesity due to excess calories; J20.9 Acute bronchitis, unspecified; Z88.1 Allergy status to other antibiotic agents; Z79.51 Long term (current) use of inhaled steroids; Z79.899 Other long term (current) drug therapy; Z87.891 Personal history of nicotine dependence; Z98.891 History of uterine scar from previous surgery; Z82.49 Family history of ischemic heart disease and other diseases of the circulatory system

== ENCOUNTER → 2018-08-27 | Outpatient (CLI) | payer OTHER ==
[~2018-08-27] MED LIST changes: +AUGMENTIN 875875 MG PO; +FLONASE ALLERG9.9 ML NAS; +FLUCONAZOLE100 MG PO; +Nystatin 100,000 UNI PO
[2018-08-27 17:16] LABS: BASO % 0.3 % (0.0-1.0); EOS # 0.1 10*3/uL (0.0-0.4); EOS % 1.8 % (1.0-4.0); HEMATOCRIT 38.9 % (37.0-47.0); HEMOGLOBIN 12.2 g/dl (12.0-16.0); LYMPH # 1.9 10*3/uL (1.3-4.4); LYMPH % 28.8 % (27.0-41.0); MEAN CELL VOLUME 88.2 fl (81.0-99.0); MEAN CORPUSCULAR HGB 27.7 pg (27.0-31.0); MEAN CORPUSCULAR HGB CONC 31.4 g/dl (33.0-37.0); MEAN PLATELET VOLUME 9.7 fl (9.6-12.3); MONO # 0.6 10*3/uL (0.1-1.0); MONO % 8.4 % (3.0-9.0); NEUT # 3.9 10*3/uL (2.3-7.9); NEUT % 59.9 % (47.0-73.0); PLATELET COUNT AUTOMATED 181 10*3/uL (130-400); RED BLOOD COUNT 4.41 10*6/uL (4.10-5.10); RED CELL DISTRI WIDTH 16.2 % (0-14.5); WHITE BLOOD COUNT 6.5 10*3/uL (4.8-10.8)
[2018-09-04 18:08] LABS: ALTERNARIA ALTERNATA, IGE <0.10 kU/L (Class 0); AMERICAN ELM, IGE <0.10 kU/L (Class 0); ASPERGILLUS FUMIGATU, IGE <0.10 kU/L (Class 0); BERMUDA GRASS, IGE <0.10 kU/L (Class 0); BIRCH, COMMON SILVER IGE <0.10 kU/L (Class 0); CLADOSPORIUM HERBARU, IGE <0.10 kU/L (Class 0); CODFISH, IGE <0.10 kU/L (Class 0); CORN, IGE <0.10 kU/L (Class 0); D FARINAE MITE <0.10 kU/L (Class 0); D PTERONYSSINUS <0.10 kU/L (Class 0); DOG DANDER, IGE <0.10 kU/L (Class 0); EGG WHITE, IGE <0.10 kU/L (Class 0); IMMUNOGLOBULIN IgE 002170 20 IU/mL (6-495); MAPLE LEAF SYCAMORE, IGE <0.10 kU/L (Class 0); MAPLE/BOX ELDER, IGE <0.10 kU/L (Class 0); MILK (COW), IGE <0.10 kU/L (Class 0); MOUSE URINE IGE <0.10 kU/L (Class 0); PEANUT, IGE <0.10 kU/L (Class 0); PENICILLIUM CHRYSOGENUM, IGE <0.10 kU/L (Class 0); ROUGH PIGWEED, IGE <0.10 kU/L (Class 0); SHEEP SORREL (DOCK), IGE <0.10 kU/L (Class 0); SHORT RAGWEED, IGE <0.10 kU/L (Class 0); SOYBEAN, IGE <0.10 kU/L (Class 0); TIMOTHY, IGE <0.10 kU/L (Class 0); WALNUT TREE, IGE <0.10 kU/L (Class 0); WHEAT, IGE <0.10 kU/L (Class 0); WHITE ASH, IGE <0.10 kU/L (Class 0); WHITE MULBERRY, IGE <0.10 kU/L (Class 0); WHITE OAK, IGE <0.10 kU/L (Class 0)
== END | disposition home or self-care (01) ==
LOC: LAB 16:29
PROVIDERS: Internal Medicine Critical Care Medicine
DX: J30.9 Allergic rhinitis, unspecified (principal)

== ENCOUNTER → 2018-09-27 | Outpatient (CLI) | payer OTHER ==
[2018-09-29 08:07] LABS: IMMUNOGLOBULIN G, QNT 929 mg/dL (700-1600); IMMUNOGLOBULIN M, QNT 298 mg/dL (26-217)
[2018-10-03 00:07] LABS: IMMUNOGLOBULIN IgE 002170 10 IU/mL (6-495)
== END | disposition home or self-care (01) ==
LOC: LAB 21:09
PROVIDERS: Allergy & Immunology
DX: J45.909 Unspecified asthma, uncomplicated (principal)

== ENCOUNTER 2018-11-19 18:51 | Emergency (ER) | payer OTHER ==
[~2018-11-19] VITALS: Ht 167.6 cm; Wt 158.8 kg
[~2018-11-19 18:51] MED LIST changes: -AUGMENTIN 875875 MG PO; -FLONASE ALLERG9.9 ML NAS
[2018-11-19 18:53] VITALS: BP 167/80
[2018-11-19 20:49] LABS: BASO # 0.1 10*3/uL (0.0-0.1); BASO % 0.6 % (0.0-1.0); EOS # 0.1 10*3/uL (0.0-0.4); EOS % 0.6 % (1.0-4.0); HEMATOCRIT 40.4 % (37.0-47.0); HEMOGLOBIN 12.7 g/dl (12.0-16.0); LYMPH # 1.8 10*3/uL (1.3-4.4); LYMPH % 15.3 % (27.0-41.0); MEAN CELL VOLUME 87.1 fl (81.0-99.0); MEAN CORPUSCULAR HGB 27.4 pg (27.0-31.0); MEAN CORPUSCULAR HGB CONC 31.4 g/dl (33.0-37.0); NEUT # 8.9 10*3/uL (2.3-7.9); NEUT % 75.2 % (47.0-73.0); PLATELET COUNT AUTOMATED 231 10*3/uL (130-400); RED BLOOD COUNT 4.64 10*6/uL (4.10-5.10); RED CELL DISTRI WIDTH 14.2 % (0-14.5); WHITE BLOOD COUNT 11.9 10*3/uL (4.8-10.8)
[2018-11-19 21:20] LABS: ALBUMIN 3.4 gm/dl (3.1-4.5); ALKALINE PHOSPHATASE 106 U/L (45-117); BUN 11 mg/dl (7-24); CHLORIDE 108 mmol/L (98-107); CREATININE 0.78 mg/dL (0.55-1.02); POTASSIUM 3.5 mmol/L (3.5-5.1); SGOT/AST 17 IU/L (3-35); SGPT/ALT 37 U/L (12-78); SODIUM 139 mmol/L (136-145); TOTAL PROTEIN 7.6 gm/dL (6.4-8.2)
[2018-11-19] MEDS ORDERED: FLONASE ALLERG9.9 ML NAS (23:37)
[2018-11-19] MEDS ORDERED: AUGMENTIN 875875 MG PO (23:37)
[2018-11-19] MEDS ORDERED: ZYRTEC10 MG PO (23:37)
== END 2018-11-20 | disposition home or self-care (01) ==
LOC: ED 18:51
PROVIDERS: Physician Assistant
DX: J32.9 Chronic sinusitis, unspecified (principal); J40 Bronchitis, not specified as acute or chronic; Z88.1 Allergy status to other antibiotic agents; Z79.899 Other long term (current) drug therapy

== ENCOUNTER 2019-10-05 19:45 | Emergency (ER) | payer OTHER ==
[~2019-10-05] VITALS: Ht 167.6 cm; Wt 158.8 kg
[~2019-10-05 19:45] MED LIST changes: +AUGMENTIN 875875 MG PO; +FLONASE ALLERG9.9 ML NAS
[2019-10-05 19:50] VITALS: BP 152/79
[2019-10-05 20:41] LABS: BASO # 0.1 10*3/uL (0.0-0.1); BASO % 0.5 % (0.0-1.0); EOS # 0.2 10*3/uL (0.0-0.4); HEMATOCRIT 43.4 % (37.0-47.0); LYMPH # 1.9 10*3/uL (1.3-4.4); LYMPH % 20.7 % (27.0-41.0); MEAN CELL VOLUME 85.9 fl (81.0-99.0); MEAN CORPUSCULAR HGB 26.5 pg (27.0-31.0); MEAN CORPUSCULAR HGB CONC 30.9 g/dl (33.0-37.0); MEAN PLATELET VOLUME 9.4 fl (9.6-12.3); MONO # 0.8 10*3/uL (0.1-1.0); MONO % 8.6 % (3.0-9.0); NEUT # 6.2 10*3/uL (2.3-7.9); NEUT % 67.9 % (47.0-73.0); PLATELET COUNT AUTOMATED 310 10*3/uL (130-400); RED BLOOD COUNT 5.05 10*6/uL (4.10-5.10); RED CELL DISTRI WIDTH 15.6 % (0-14.5); WHITE BLOOD COUNT 9.1 10*3/uL (4.8-10.8)
[2019-10-05 21:02] LABS: ALBUMIN 3.3 gm/dl (3.1-4.5); ALKALINE PHOSPHATASE 115 U/L (45-117); BUN 12 mg/dl (7-24); CHLORIDE 113 mmol/L (98-107); CREATININE 0.78 mg/dL (0.55-1.02); LIPASE 68 U/L (73-393); POTASSIUM 3.7 mmol/L (3.5-5.1); SGOT/AST 39 IU/L (3-35); SGPT/ALT 65 U/L (12-78); SODIUM 142 mmol/L (136-145); TOTAL PROTEIN 7.6 gm/dL (6.4-8.2)
== END 2019-10-06 | disposition home or self-care (01) ==
LOC: ED 19:45
PROVIDERS: Nurse Practitioner Family
DX: R19.7 Diarrhea, unspecified (principal); E03.9 Hypothyroidism, unspecified; Z88.8 Allergy status to other drugs, medicaments and biological substances; Z79.899 Other long term (current) drug therapy; Z79.2 Long term (current) use of antibiotics

== ENCOUNTER 2020-01-18 16:55 | Inpatient (IN) | payer OTHER ==
[~2020-01-18] VITALS: Ht 167.6 cm; Wt 169.3 kg
[2020-01-18 17:15] VITALS: BP 129/74
[2020-01-18 20:23] LABS: BASO # 0.1 10*3/uL (0.0-0.1); BASO % 0.6 % (0.0-1.0); EOS # 0.2 10*3/uL (0.0-0.4); EOS % 2.6 % (1.0-4.0); HEMATOCRIT 45.2 % (37.0-47.0); LYMPH # 1.2 10*3/uL (1.3-4.4); LYMPH % 13.9 % (27.0-41.0); MEAN CELL VOLUME 85.1 fl (81.0-99.0); MEAN CORPUSCULAR HGB CONC 30.5 g/dl (33.0-37.0); MEAN PLATELET VOLUME 9.9 fl (9.6-12.3); MONO # 0.6 10*3/uL (0.1-1.0); MONO % 6.5 % (3.0-9.0); NEUT # 6.6 10*3/uL (2.3-7.9); NEUT % 75.8 % (47.0-73.0); PLATELET COUNT AUTOMATED 363 10*3/uL (130-400); RED BLOOD COUNT 5.31 10*6/uL (4.10-5.10); RED CELL DISTRI WIDTH 15.3 % (0-14.5); WHITE BLOOD COUNT 8.8 10*3/uL (4.8-10.8)
[2020-01-18 20:34] LABS: ACT PARTIAL THROMBO TIME 29.3 SECONDS (20.0-32.1)
[2020-01-18 20:44] LABS: ALBUMIN 3.6 gm/dl (3.1-4.5); ALKALINE PHOSPHATASE 118 U/L (45-117); BUN 19 mg/dl (7-24); CHLORIDE 109 mmol/L (98-107); CREATININE 0.97 mg/dL (0.55-1.02); LIPASE 83 U/L (73-393); POTASSIUM 4.8 mmol/L (3.5-5.1); SGOT/AST 34 IU/L (3-35); SGPT/ALT 35 U/L (12-78); SODIUM 137 mmol/L (136-145); TOTAL PROTEIN 8.5 gm/dL (6.4-8.2)
[2020-01-18 21:50] VITALS: BP 144/74; BP 145/59
[2020-01-18] MEDS ORDERED: IBU800 M1 PO (22:49)
[2020-01-18] MEDS ORDERED: DULE1ARO1 INH (22:50)
[2020-01-18] MEDS ORDERED: VITAMIN D250 MC1 PO (22:51)
[2020-01-18] MEDS ORDERED: LASIX40 MG PO (23:03)
[2020-01-19] VITALS: BP 145/59
[2020-01-19 06:30] LABS: BASO # 0.1 10*3/uL (0.0-0.1); BASO % 0.8 % (0.0-1.0); EOS # 0.2 10*3/uL (0.0-0.4); EOS % 2.9 % (1.0-4.0); HEMATOCRIT 37.9 % (37.0-47.0); LYMPH # 1.2 10*3/uL (1.3-4.4); LYMPH % 18.2 % (27.0-41.0); MEAN CELL VOLUME 84.8 fl (81.0-99.0); MEAN CORPUSCULAR HGB CONC 30.6 g/dl (33.0-37.0); MEAN PLATELET VOLUME 9.5 fl (9.6-12.3); MONO # 0.6 10*3/uL (0.1-1.0); NEUT # 4.6 10*3/uL (2.3-7.9); NEUT % 68.6 % (47.0-73.0); PLATELET COUNT AUTOMATED 307 10*3/uL (130-400); RED BLOOD COUNT 4.47 10*6/uL (4.10-5.10); RED CELL DISTRI WIDTH 15.2 % (0-14.5); WHITE BLOOD COUNT 6.6 10*3/uL (4.8-10.8)
[2020-01-19 06:34] LABS: ACT PARTIAL THROMBO TIME 29.9 SECONDS (20.0-32.1)
[2020-01-19 07:15] LABS: ALBUMIN 3.2 gm/dl (3.1-4.5); ALKALINE PHOSPHATASE 98 U/L (45-117); BUN 18 mg/dl (7-24); CHLORIDE 112 mmol/L (98-107); CHOLESTEROL 160 mg/dL (<200); CREATININE 0.66 mg/dL (0.55-1.02); FREE T4 1.05 ng/dl (0.76-1.46); HDL CHOLESTEROL 40 mg/dl (40-60); LDL CHOLESTEROL 92 mg/dL (9-159); POTASSIUM 4.2 mmol/L (3.5-5.1); SGOT/AST 15 IU/L (3-35); SGPT/ALT 30 U/L (12-78); SODIUM 141 mmol/L (136-145); TOTAL PROTEIN 6.5 gm/dL (6.4-8.2); TRIGLYCERIDES 138 mg/dl (<150); VLDL CHOLESTEROL 28 mg/dL (6-40)
[2020-01-19 07:21] LABS: VITAMIN D, 25-HYDROXY 19.3 ng/mL (30-100)
[2020-01-19 08:00] VITALS: BP 120/46
[2020-01-19 12:00] VITALS: BP 130/65
[2020-01-19 16:00] VITALS: BP 116/64
[2020-01-19 20:00] VITALS: BP 128/72
[2020-01-20] VITALS (8 sets, daily range): BP systolic 99–152; BP diastolic 45–86
[2020-01-20 07:02] LABS: BASO # 0.1 10*3/uL (0.0-0.1); EOS # 0.2 10*3/uL (0.0-0.4); EOS % 2.3 % (1.0-4.0); HEMATOCRIT 39.9 % (37.0-47.0); LYMPH # 1.9 10*3/uL (1.3-4.4); LYMPH % 25.4 % (27.0-41.0); MEAN CELL VOLUME 86.4 fl (81.0-99.0); MEAN CORPUSCULAR HGB 26.8 pg (27.0-31.0); MEAN CORPUSCULAR HGB CONC 31.1 g/dl (33.0-37.0); MEAN PLATELET VOLUME 9.5 fl (9.6-12.3); MONO # 0.6 10*3/uL (0.1-1.0); MONO % 8.6 % (3.0-9.0); NEUT # 4.5 10*3/uL (2.3-7.9); PLATELET COUNT AUTOMATED 320 10*3/uL (130-400); RED BLOOD COUNT 4.62 10*6/uL (4.10-5.10); RED CELL DISTRI WIDTH 15.7 % (0-14.5); WHITE BLOOD COUNT 7.3 10*3/uL (4.8-10.8)
[2020-01-20 07:31] LABS: BUN 16 mg/dl (7-24); CHLORIDE 113 mmol/L (98-107); POTASSIUM 4.3 mmol/L (3.5-5.1); SODIUM 141 mmol/L (136-145)
[2020-01-21] VITALS: BP 141/77
[2020-01-21 08:00] VITALS: BP 151/87
[2020-01-21 12:00] VITALS: BP 129/60
[2020-01-21] MEDS ORDERED: NYSTATIN15 GM T (13:36)
[2020-01-21] MEDS ORDERED: ACYCLOVIR400 MG PO (13:36)
[2020-01-21] MEDS ORDERED: CLINDAMYCIN HC300 MG PO (13:36)
[2020-01-21] MEDS ORDERED: HYDROCODONE-AC1 EAC1 PO (13:36)
== END 2020-01-21 15:00 | disposition home or self-care (01) | DRG 580 ==
LOC: ED 16:55 → 4E 21:03 → EDHOLD 21:03 → 4E 21:16
PROVIDERS: Internal Medicine; Nurse Practitioner Family; ADMIT Internal Medicine; ATTEND Internal Medicine
PROC: 0J9D0ZZ Drainage of Right Upper Arm Subcutaneous Tissue and Fascia, Open Approach (ICD-10-PCS; principal; 2020-01-20)
DX: L02.411 Cutaneous abscess of right axilla (principal); L03.312 Cellulitis of back [any part except buttock and flank]; Z68.44 Body mass index [BMI] 60.0-69.9, adult; J45.909 Unspecified asthma, uncomplicated; G47.33 Obstructive sleep apnea (adult) (pediatric); G89.29 Other chronic pain; E66.01 Morbid (severe) obesity due to excess calories; E89.0 Postprocedural hypothyroidism; E83.41 Hypermagnesemia; K21.9 Gastro-esophageal reflux disease without esophagitis; M54.9 Dorsalgia, unspecified; E87.8 Other disorders of electrolyte and fluid balance, not elsewhere classified; R73.9 Hyperglycemia, unspecified; Z78.9 Other specified health status; Z91.09 Other allergy status, other than to drugs and biological substances; Z88.1 Allergy status to other antibiotic agents; Z98.891 History of uterine scar from previous surgery; Z87.891 Personal history of nicotine dependence; Z82.49 Family history of ischemic heart disease and other diseases of the circulatory system

== ENCOUNTER 2020-06-12 11:29 | Emergency (ER) | payer OTHER ==
[~2020-06-12] VITALS: Wt 163.3 kg
[~2020-06-12 11:29] MED LIST changes: +ACYCLOVIR400 MG PO; +CLINDAMYCIN HC300 MG PO; +DULE1ARO1 INH; +HYDROCODONE-AC1 EAC1 PO; +IBU800 M1 PO; +NYSTATIN15 GM T; +VITAMIN D250 MC1 PO
[2020-06-12 11:39] VITALS: BP 132/70
[2020-06-12 12:12] LABS: BILIRUBIN Negative (Negative); BLOOD Negative (Negative); CLARITY Clear (Clear); COLOR Yellow (Yellow); GLUCOSE Negative (Negative); KETONE Negative (Negative); LEUKO ESTERASE Negative (Negative); NITRITE Negative (Negative); PH 5.5 (4.5-8.0); SPECIFIC GRAVITY 1.015 (1.001-1.030); UROBILINOGEN 0.2 E.U./dl (0.0-1.0)
[2020-06-12 12:16] LABS: BASO # 0.1 10*3/uL (0.0-0.1); BASO % 0.5 % (0.0-1.0); EOS # 0.2 10*3/uL (0.0-0.4); HEMATOCRIT 41.7 % (37.0-47.0); LYMPH % 9.4 % (27.0-41.0); MEAN CELL VOLUME 83.4 fl (81.0-99.0); MEAN CORPUSCULAR HGB 26.6 pg (27.0-31.0); MEAN CORPUSCULAR HGB CONC 31.9 g/dl (33.0-37.0); MEAN PLATELET VOLUME 9.4 fl (9.6-12.3); MONO # 0.8 10*3/uL (0.1-1.0); MONO % 7.4 % (3.0-9.0); NEUT # 8.3 10*3/uL (2.3-7.9); NEUT % 80.5 % (47.0-73.0); PLATELET COUNT AUTOMATED 296 10*3/uL (130-400); RED CELL DISTRI WIDTH 15.5 % (0-14.5); WHITE BLOOD COUNT 10.3 10*3/uL (4.8-10.8)
[2020-06-12 12:25] LABS: WBC 0-2 wbc/hpf (0-5)
[2020-06-12 12:31] LABS: ALBUMIN 3.5 gm/dl (3.1-4.5); ALKALINE PHOSPHATASE 117 U/L (45-117); BUN 12 mg/dl (7-24); CHLORIDE 109 mmol/L (98-107); SGOT/AST 14 IU/L (3-35); SGPT/ALT 33 U/L (12-78); SODIUM 141 mmol/L (136-145); TOTAL PROTEIN 7.9 gm/dL (6.4-8.2)
[2020-06-12] MEDS ORDERED: AUGMENTIN 875875 MG PO (13:39)
[2020-06-12] MEDS ORDERED: ROBITUSSIN5 ML PO (13:39)
== END 2020-06-12 14:09 | disposition home or self-care (01) ==
LOC: ED 11:29
PROVIDERS: Registered Nurse
DX: J06.9 Acute upper respiratory infection, unspecified (principal); J45.909 Unspecified asthma, uncomplicated; E03.9 Hypothyroidism, unspecified; Z79.899 Other long term (current) drug therapy; Z88.8 Allergy status to other drugs, medicaments and biological substances; Z79.2 Long term (current) use of antibiotics; Z98.890 Other specified postprocedural states; Z87.891 Personal history of nicotine dependence

== ENCOUNTER 2020-08-21 12:48 | Inpatient (IN) | payer OTHER ==
[~2020-08-21] VITALS: Ht 167.6 cm; Wt 163.3 kg
[~2020-08-21 12:48] MED LIST changes: +ROBITUSSIN5 ML PO
[2020-08-21 13:12] VITALS: BP 138/48
[2020-08-21 17:28] LABS: BASO % 0.3 % (0.0-1.0); LYMPH % 8.8 % (27.0-41.0); MEAN CELL VOLUME 84.8 fl (81.0-99.0); MEAN CORPUSCULAR HGB 26.4 pg (27.0-31.0); MEAN CORPUSCULAR HGB CONC 31.1 g/dl (33.0-37.0); MEAN PLATELET VOLUME 9.6 fl (9.6-12.3); MONO # 0.8 10*3/uL (0.1-1.0); MONO % 7.8 % (3.0-9.0); NEUT # 8.9 10*3/uL (2.3-7.9); NEUT % 82.7 % (47.0-73.0); PLATELET COUNT AUTOMATED 325 10*3/uL (130-400); RED BLOOD COUNT 5.19 10*6/uL (4.10-5.10); WHITE BLOOD COUNT 10.8 10*3/uL (4.8-10.8)
[2020-08-21 17:45] LABS: INTERNATIONAL NORM RATIO 1.1 (2.0-3.5)
[2020-08-21 17:49] LABS: ALBUMIN 3.2 gm/dl (3.1-4.5); CREATININE 1.14 mg/dL (0.55-1.02); POTASSIUM 3.9 mmol/L (3.5-5.1); TOTAL PROTEIN 7.9 gm/dL (6.4-8.2); TROPONIN I 0.015 ng/ml (<0.045)
[2020-08-21 20:12] VITALS: BP 132/59
[2020-08-21 20:27] VITALS: BP 126/57
[2020-08-21 22:07] VITALS: BP 121/66
[2020-08-21 23:10] VITALS: BP 111/52
[2020-08-21 23:40] LABS: BILIRUBIN Negative (Negative); BLOOD Negative (Negative); CLARITY Clear (Clear); COLOR Yellow (Yellow); GLUCOSE Negative (Negative); KETONE Trace (Negative); LEUKO ESTERASE Negative (Negative); NITRITE Negative (Negative); PH 5.5 (4.5-8.0); SPECIFIC GRAVITY 1.025 (1.001-1.030); UROBILINOGEN 0.2 E.U./dl (0.0-1.0)
[2020-08-22] VITALS (8 sets, daily range): BP systolic 103–144; BP diastolic 50–77
[2020-08-22 00:23] LABS: RBC 0-2 rbc/hpf (0-2); WBC 0-2 wbc/hpf (0-5)
[2020-08-22 05:51] LABS: ABG BASE EXCESS -4.2 mmol/L (-2.0-2.0); ARTERIAL BLOOD GAS PH 7.338 (7.35-7.45); ARTERIAL BLOOD GAS PO2 56.1 (80-90)
[2020-08-22 06:15] LABS: CHLORIDE 106 mmol/L (98-107); POTASSIUM 4.2 mmol/L (3.5-5.1); SODIUM 135 mmol/L (136-145)
[2020-08-22 06:25] LABS: HEMATOCRIT 40.6 % (37.0-47.0); LYMPH # 0.6 10*3/uL (1.3-4.4); LYMPH % 9.4 % (27.0-41.0); MEAN CELL VOLUME 83.9 fl (81.0-99.0); MEAN CORPUSCULAR HGB 26.4 pg (27.0-31.0); MEAN CORPUSCULAR HGB CONC 31.5 g/dl (33.0-37.0); MEAN PLATELET VOLUME 9.8 fl (9.6-12.3); MONO # 0.2 10*3/uL (0.1-1.0); MONO % 3.1 % (3.0-9.0); NEUT # 5.6 10*3/uL (2.3-7.9); PLATELET COUNT AUTOMATED 302 10*3/uL (130-400); RED BLOOD COUNT 4.84 10*6/uL (4.10-5.10); RED CELL DISTRI WIDTH 15.2 % (0-14.5); WHITE BLOOD COUNT 6.4 10*3/uL (4.8-10.8)
[2020-08-22 06:43] LABS: ALBUMIN 2.8 gm/dl (3.1-4.5); ALKALINE PHOSPHATASE 96 U/L (45-117); BUN 19 mg/dl (7-24); CHOLESTEROL 110 mg/dL (<200); CPK 30 U/L (26-192); CREATININE 0.89 mg/dL (0.55-1.02); LDH 218 U/L (84-246); LDL CHOLESTEROL 54 mg/dL (9-159); SGOT/AST 16 IU/L (3-35); SGPT/ALT 30 U/L (12-78); THYROID STIM HORMONE (HS) 0.144 uIU/ml (0.358-4.75); TOTAL PROTEIN 7.4 gm/dL (6.4-8.2); TRIGLYCERIDES 71 mg/dl (<150)
[2020-08-22 06:44] LABS: ACT PARTIAL THROMBO TIME 33.3 SECONDS (20.0-32.1)
[2020-08-22 07:09] LABS: VITAMIN D, 25-HYDROXY 30.8 ng/mL (30-100)
[2020-08-22 07:10] LABS: FERRITIN 239.6 ng/mL (10.0-291.0)
[2020-08-22 22:57] LABS: ABG BASE EXCESS 0.1 mmol/L (-2.0-2.0); ARTERIAL BLOOD GAS PH 7.396 (7.35-7.45); ARTERIAL BLOOD GAS PO2 79.2 (80-90)
[2020-08-23] VITALS: BP 122/53
[2020-08-23 06:42] LABS: BASO % 0.1 % (0.0-1.0); HEMATOCRIT 41.3 % (37.0-47.0); LYMPH # 1.1 10*3/uL (1.3-4.4); LYMPH % 10.9 % (27.0-41.0); MEAN CELL VOLUME 84.5 fl (81.0-99.0); MEAN CORPUSCULAR HGB 26.2 pg (27.0-31.0); MEAN PLATELET VOLUME 9.9 fl (9.6-12.3); MONO # 0.7 10*3/uL (0.1-1.0); MONO % 6.9 % (3.0-9.0); NEUT # 8.4 10*3/uL (2.3-7.9); NEUT % 81.7 % (47.0-73.0); PLATELET COUNT AUTOMATED 304 10*3/uL (130-400); RED BLOOD COUNT 4.89 10*6/uL (4.10-5.10); RED CELL DISTRI WIDTH 14.8 % (0-14.5); WHITE BLOOD COUNT 10.3 10*3/uL (4.8-10.8)
[2020-08-23 06:53] LABS: ALBUMIN 2.7 gm/dl (3.1-4.5); ALKALINE PHOSPHATASE 87 U/L (45-117); BUN 19 mg/dl (7-24); CHLORIDE 107 mmol/L (98-107); CREATININE 0.86 mg/dL (0.55-1.02); LDH 314 U/L (84-246); POTASSIUM 4.3 mmol/L (3.5-5.1); SGOT/AST 24 IU/L (3-35); SGPT/ALT 31 U/L (12-78); SODIUM 138 mmol/L (136-145)
[2020-08-23 06:57] LABS: CPK 41 U/L (26-192)
[2020-08-23 07:02] LABS: ABG BASE EXCESS 0.6 mmol/L (-2.0-2.0); ARTERIAL BLOOD GAS PH 7.406 (7.35-7.45); ARTERIAL BLOOD GAS PO2 71.4 (80-90)
[2020-08-23 08:00] VITALS: BP 13/76; BP 133/76
[2020-08-23 11:53] LABS: ABG BASE EXCESS 1.4 mmol/L (-2.0-2.0); ARTERIAL BLOOD GAS PH 7.45 (7.35-7.45); ARTERIAL BLOOD GAS PO2 89.9 (80-90)
[2020-08-23 12:00] VITALS: BP 124/63
[2020-08-23 16:00] VITALS: BP 121/66
[2020-08-23 16:32] LABS: ABG BASE EXCESS 0.8 mmol/L (-2.0-2.0); ARTERIAL BLOOD GAS PH 7.416 (7.35-7.45); ARTERIAL BLOOD GAS PO2 73.3 (80-90)
[2020-08-23 20:00] VITALS: BP 135/72
[2020-08-24] VITALS: BP 113/68
[2020-08-24 06:21] LABS: HEMATOCRIT 41.2 % (37.0-47.0); LYMPH # 0.8 10*3/uL (1.3-4.4); LYMPH % 14.7 % (27.0-41.0); MEAN CELL VOLUME 84.8 fl (81.0-99.0); MEAN CORPUSCULAR HGB 26.3 pg (27.0-31.0); MEAN CORPUSCULAR HGB CONC 31.1 g/dl (33.0-37.0); MONO # 0.5 10*3/uL (0.1-1.0); MONO % 8.5 % (3.0-9.0); NEUT # 4.1 10*3/uL (2.3-7.9); NEUT % 76.4 % (47.0-73.0); PLATELET COUNT AUTOMATED 328 10*3/uL (130-400); RED BLOOD COUNT 4.86 10*6/uL (4.10-5.10); RED CELL DISTRI WIDTH 14.7 % (0-14.5); WHITE BLOOD COUNT 5.3 10*3/uL (4.8-10.8)
[2020-08-24 06:22] LABS: ALBUMIN 2.6 gm/dl (3.1-4.5); BUN 19 mg/dl (7-24); CHLORIDE 104 mmol/L (98-107); CREATININE 0.78 mg/dL (0.55-1.02); POTASSIUM 4.5 mmol/L (3.5-5.1); SGOT/AST 20 IU/L (3-35); SGPT/ALT 26 U/L (12-78); SODIUM 137 mmol/L (136-145); TOTAL PROTEIN 7.2 gm/dL (6.4-8.2)
[2020-08-24 06:24] LABS: ALKALINE PHOSPHATASE 82 U/L (45-117); CPK 31 U/L (26-192); LDH 358 U/L (84-246)
[2020-08-24 08:00] VITALS: BP 125/62
[2020-08-24 11:25] VITALS: BP 125/69
[2020-08-24 11:55] LABS: ABG BASE EXCESS 2.4 mmol/L (-2.0-2.0); ARTERIAL BLOOD GAS PH 7.452 (7.35-7.45); ARTERIAL BLOOD GAS PO2 65.3 (80-90)
[2020-08-24 16:00] VITALS: BP 111/43
[2020-08-24 20:00] VITALS: BP 136/66
== END 2020-08-24 22:34 | disposition short-term general hospital (02) | DRG 871 ==
LOC: ED 12:48 → ICCU 19:33 → 4E 19:33 → EDHOLD 19:33 → 4E 08-22 08:28 → ICCU 08-24 12:16
PROVIDERS: Hospitalist; Internal Medicine Critical Care Medicine; Physician Assistant; ADMIT Internal Medicine; ATTEND Internal Medicine
PROC: XW033E5 Introduction of Remdesivir Anti-infective into Peripheral Vein, Percutaneous Approach, New Technology Group 5 (ICD-10-PCS; 2020-08-21)
PROC: 5A09357 Assistance with Respiratory Ventilation, Less than 24 Consecutive Hours, Continuous Positive Airway Pressure (ICD-10-PCS; principal; 2020-08-22)
PROC: 5A0935A Assistance with Respiratory Ventilation, Less than 24 Consecutive Hours, High Flow/Velocity Cannula (ICD-10-PCS; 2020-08-22)
PROC: 5A09357 Assistance with Respiratory Ventilation, Less than 24 Consecutive Hours, Continuous Positive Airway Pressure (ICD-10-PCS; 2020-08-23)
PROC: 5A0935A Assistance with Respiratory Ventilation, Less than 24 Consecutive Hours, High Flow/Velocity Cannula (ICD-10-PCS; 2020-08-23)
PROC: XW033H5 Introduction of Tocilizumab into Peripheral Vein, Percutaneous Approach, New Technology Group 5 (ICD-10-PCS; 2020-08-23)
PROC: 5A09357 Assistance with Respiratory Ventilation, Less than 24 Consecutive Hours, Continuous Positive Airway Pressure (ICD-10-PCS; 2020-08-24)
DX: A41.89 Other specified sepsis (principal); U07.1 COVID-19; J12.82 Pneumonia due to coronavirus disease 2019; N17.0 Acute kidney failure with tubular necrosis; J96.01 Acute respiratory failure with hypoxia; E87.1 Hypo-osmolality and hyponatremia; J45.51 Severe persistent asthma with (acute) exacerbation; R65.20 Severe sepsis without septic shock; K21.9 Gastro-esophageal reflux disease without esophagitis; G47.33 Obstructive sleep apnea (adult) (pediatric); E03.9 Hypothyroidism, unspecified; R79.82 Elevated C-reactive protein (CRP); G89.29 Other chronic pain; M54.5 Low back pain; E66.01 Morbid (severe) obesity due to excess calories; Z98.891 History of uterine scar from previous surgery; Z87.891 Personal history of nicotine dependence; Z82.49 Family history of ischemic heart disease and other diseases of the circulatory system; Z81.8 Family history of other mental and behavioral disorders; Z88.1 Allergy status to other antibiotic agents; Z79.899 Other long term (current) drug therapy; Z87.01 Personal history of pneumonia (recurrent)